=== PATIENT | female | born 2000 | race Caucasian/White ===

== ENCOUNTER 2023-01-08 07:31 | Inpatient (IN) ==
[2023-01-08] MEDS ORDERED: OXYTOCIN 30 UNITS/500 ML BAG IV PRN ×2 (07:53→07:54)
[2023-01-08] MEDS ORDERED: LIDOCAINE 1% LOCAL 20 ML VIAL INFIL PRN (07:53)
--- NOTE | 2023-01-08 08:05 | History & Physical Report ---
Date of Service January 08, 2023 Assessment & Plan (1) Encounter for induction of labor: Plan: Plan for induction of labor for post dates. Noonan bulb placed last night. Plan for induction with Pitocin. Epidural as desired. Admission and Anticipated Discharge Date Admission Date: January 08, 2023 History of Present Illness Primary Care Provider: Lloyd Bermeoyanelis Phillips is a 22 y/o female currently at 40 6/7 WGA with an ROSHAN 01/02/23 as determined by LMP who is here for induction of labor. Noonan bulb placed yesterday evening. + contractions; + movement; no fluid loss; some bleeding after insertion of Noonan bulb External FHT and external uterine monitors used; Category 1 tracing; moderate FHT variability. Had regular appointments with OB. OB Labs: Blood Type A Positive 05/28/22 Antibody Screen NEGATIVE 05/28/22 Hemoglobin 10.2 g/dl (12.0-16.0) L 10/15/22 Hematocrit 30.4 % (34.1-44.9) L 10/15/22 Mean Corpuscular Volume 87.1 fL (80.0-100.0) 05/28/22 Platelet Count 227 K/uL (130-400) 05/28/22 Rubella IgG Antibody Immune (Immune) 05/28/22 Rapid Plasma Reagin Nonreactive (Nonreactive) 05/28/22 Hepatitis B Surface Antigen. NON-REACTIVE (NON-REACTIVE) 05/28/22 Hepatitis C Antibody (EIA) NON-REACTIVE (NON-REACTIVE) 05/28/22 HIV (1&2) Ag and Ab Confirmation NON-REACTIVE (NON-REACTIVE) 05/28/22 Glucose 1 Hour 50 gm Load 118 mg/dl (70-130) 10/15/22 OB Optional Labs: Chlamydia trachomatis RNA NOT DETECTED (NOT DETECTED) 05/28/22 Neisseria gonorrhoeae RNA NOT DETECTED (NOT DETECTED) 05/28/22 GBS Negative Allergies Allergy/AdvReac Type Severity Reaction Status Date / Time No Known Allergies Allergy Verified 01/08/23 07:47 Home Medications Medication Instructions Recorded Confirmed Type prenat.vits,rina,[id number] 1 tab PO DAILY 05/24/22 01/08/23 History ferrous sulfate 27 mg iron tablet 27 mg PO DAILY 01/08/23 01/08/23 History Patient History Surgical History S/P tonsillectomy Family History (Updated 01/08/23 @ 07:47 by Geetha Vázquez RN) Other No history of previous surgery No known health problems Social History (Updated 05/24/22 @ 12:24 by Jailyn López) Smoking Status: Never smoker Second Hand Exposure: No; Hx Alcohol Use: No Hx Substance Use: No Preferred Language: Slovenian Communication Ability: Effective 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 Details: never had a pap Review of Systems Denies fever, chills, sweats Denies shortness of breath, difficulty breathing, chest pain, palpitations, chest pressure. Denies breast pain. Denies dysuria. Denies headache or changes in vision. Physical Exam Physical Exam: General: Alert, oriented. No acute distress. Cardiac: Regular rate and rhythm, no murmurs/rubs/gallops. Respiratory: Clear to auscultation bilaterally a/p, no wheezes/rales/rhonchi. No increased work of breathing. Symmetrical chest rise. No respiratory distress. Abdomen: Gravid Pelvic: Dilation 3-4 cm; Effacement 50; Station -[address] Gonzalez Lower Extremities: No lower extremity edema or swelling. No deep calf pain. Results & Data Vital Signs (Past 12 Hours) Vital Signs Pulse BP 01/08/23 07:45 111 H 136/72 Resident Activity Tracking Resident Involvement: Resident Care Provided Care Provided: OB Delivery
[2023-01-08] MEDS: LACTATED RINGER'S 1,000 ML IV PRN ×4 (08:23→22:43)
[2023-01-08 08:31] LABS: Hemoglobin 12.5 g/dl (12.0-16.0); Mean Corpuscular Hemoglobin 29.3 pg (25.0-34.0); Mean Corpuscular Hgb Conc 33.8 g/dL (32.0-36.0); Mean Corpuscular Volume 86.7 fL (80.0-100.0); Mean Platelet Volume 10.8 fL (9.4-12.4); Platelet Count 229 K/uL (130-400); RDW Coefficient of Variation 16.1 % (11.5-14.5); RDW Standard Deviation 51.2 fL (36.4-46.3); Red Blood Count 4.27 M/uL (4.20-5.40); White Blood Count 16.22 K/ul (4.8-10.8)
[2023-01-08 09:20] LABS: Alanine Aminotransferase 13 U/L (7-52); Albumin Globulin Ratio 1.3 (0.9-2); Albumin Level 3.6 gm/dl (3.4-5.0); Alkaline Phosphatase 125 U/L (34-104); Anion Gap 9 (3-11); Aspartate Aminotransferase 16 U/L (13-39); BUN Creatinine Ratio 11.1 (10-20); Bilirubin,Total 0.4 mg/dl (0.2-1.0); Blood Urea Nitrogen 6 mg/dl (6-23); Calcium 9.3 mg/dl (8.6-10.3); Carbon Dioxide 22 mmol/L (21-32); Chloride 105 mmol/L (98-107); Creatinine Clr Calc Pharmacy 167.9 ml/min; Est GFR (African American) > 150.0 ml/min; Est GFR (Non-African American) 135.8 ml/min; Globulin 2.7 gm/dl (2.5-4.0); Glucose 73 mg/dl (70-99(Fasting)); Sodium 136 mmol/L (136-145); Total Protein 6.3 gm/dl (6.0-8.3)
[2023-01-08] MEDS ORDERED: ePHEDrine sulfate 50 MG/ML AMP ONE (18:56)
[2023-01-08] MEDS ORDERED: SODIUM CHLORIDE 0.9% PF INJ 10 ML VIAL ONE (18:57)
[2023-01-08] MEDS ORDERED: fentaNYL 2MCG/ML ROPIVACAINE 1.25MG/ML 100 ML BAG EPI ONE (18:57)
[2023-01-08] MEDS ORDERED: fentaNYL citrate PF 100 MCG/2 ML VIAL ONE ×2 (18:57→23:18)
[2023-01-08] MEDS ORDERED: LIDOCAINE 2%/EPINEPHRINE 1:200,000 20 ML PF ONE (18:57)
[2023-01-08] MEDS ORDERED: BUPIVACAINE 0.25% PF 30 ML VIAL ONE (18:57)
--- NOTE | 2023-01-08 19:29 | Anesthesiology Consultation ---
Date of Service January 08, 2023 Assessment & Plan Chart Review Chart Review: Acceptable Risk for Labor Epidural Consults Requested none History Height/Weight Height: 5 ft 2 in Weight: 84.822 kg Allergies Allergy/AdvReac Type Severity Reaction Status Date / Time No Known Allergies Allergy Verified 01/08/23 07:47 Medications Home Medications Medication Instructions Recorded Confirmed Last Taken prenat.vits,rina,aue-dvcx-hlizf 1 tab PO DAILY 05/24/22 01/08/23 01/08/23 06:00 ferrous sulfate 27 mg iron tablet 27 mg PO DAILY 01/08/23 01/08/23 01/08/23 06:00 Active Medications Generic Name Dose Route Start Last Admin Trade Name Freq PRN Reason Stop Dose Admin Lactated Ringer's 1,000 mls @ 125 mls/hr 01/08/23 07:53 01/08/23 19:00 Lr IV 01/10/23 07:52 999 mls/hr .Q8H PRN Infusion L&D Protocol Protocol Oxytocin 30 units in 500 mls @ 13 mls/hr 01/08/23 07:54 01/08/23 18:54 Pitocin IV 01/10/23 07:53 0.78 units/hr .Q24H PRN 13 mls/hr Labor Induction/Augmentation Titration Protocol 0.78 UNITS/HR Past Family History Family History (Updated 01/08/23 @ 07:47 by Geetha Vázquez RN) Other No history of previous surgery No known health problems Past Surgical History Surgical History S/P tonsillectomy Social History Smoking Status: Never smoker Hx Alcohol Use: No Hx Substance Use: No substance use type: does not use Physical Exam Vital Signs Last Vital Signs Temp 36.8 C 01/08/23 19:11 Pulse 113 H 01/08/23 18:57 Resp 18 01/08/23 19:11 BP 132/76 01/08/23 18:57 Testing Laboratory Results 01/08/23 08:07 01/08/23 08:42
[2023-01-08] MEDS ORDERED: NALBUPHINE HCL INJ 10 MG/ML AMP IV PRN (19:52)
[2023-01-08] MEDS ORDERED: ONDANSETRON INJ 2 MG/ML 2 ML VIAL IV PRN (19:52)
[2023-01-08] MEDS ORDERED: ePHEDrine sulfate 50 MG/ML AMP IV PRN (19:52)
[2023-01-08] MEDS ORDERED: NALOXONE HCL 0.4 MG/1 ML VIAL/CARP IV PRN (19:52)
[2023-01-08] MEDS ORDERED: NALOXONE HCL 1 MG in SODIUM CHLORIDE 0.9% 1000ML 1,000 ML IV PRN (19:52)
[2023-01-08] MEDS ORDERED: diphenhydrAMINE 50 MG/ML VIAL IV PRN (19:52)
--- NOTE | 2023-01-08 21:23 | Labor Progress Brief Note ---
Date of Service January 08, 2023 IUPC placed in scalp lip is due to difficulty of monitoring of contractions on Pitocin and some episodic decelerations we will continue to titrate Pitocin as artificial rupture membranes occurred and she has an epidural heart rate is to return to category 1 Assessment & Plan Admission and Anticipated Discharge Date Admission Date: January 08, 2023 Results & Data Vital Signs (Past 12 Hours) Vital Signs Temp Pulse Resp BP Pulse Ox 01/08/23 19:11 98.2 F 18 01/08/23 21:19 88 99 01/08/23 21:14 93 H 100 01/08/23 21:09 104 H 100 01/08/23 21:07 86 125/73 01/08/23 21:04 91 H 98 01/08/23 20:30 16 01/08/23 20:30 16 01/08/23 20:45 16 01/08/23 20:45 16 01/08/23 20:00 18 01/08/23 20:00 18 01/08/23 20:15 18 01/08/23 20:15 18 01/08/23 20:59 88 99 01/08/23 20:54 85 100 01/08/23 20:50 83 135/71 01/08/23 20:49 85 100 01/08/23 20:44 95 H 100 01/08/23 20:39 82 100 01/08/23 20:34 119 H 100 01/08/23 20:32 93 H 113/61 01/08/23 20:29 98 H 100 01/08/23 20:26 100 H 110/58 L 01/08/23 20:24 100 H 100 01/08/23 20:21 98 H 113/60 01/08/23 20:19 99 H 100 01/08/23 20:17 101 H 124/64 01/08/23 20:14 94 H 100 01/08/23 20:11 99 H 108/57 L 01/08/23 20:09 121 H 100 01/08/23 20:07 112 H 120/62 01/08/23 20:04 113 H 100 01/08/23 20:01 106 H 100/57 L 01/08/23 19:59 105 H 99 01/08/23 19:55 110 H 109/50 L 01/08/23 19:54 105 H 97 01/08/23 19:53 112 H 104/53 L 01/08/23 19:52 123 H 108/51 L 01/08/23 19:49 97 01/08/23 19:49 99 H 01/08/23 19:49 100 H 126/57 L 01/08/23 19:47 104 H 126/60 01/08/23 19:45 94 H 16 127/58 L 01/08/23 19:44 105 H 97 01/08/23 19:43 94 H 132/64 01/08/23 19:41 100 H 129/72 01/08/23 19:39 96 H 98 01/08/23 19:34 106 H 99 01/08/23 18:57 98.2 F 113 H 132/76 01/08/23 17:59 96 H 139/81 01/08/23 16:57 99.0 F 82 20 134/71 01/08/23 16:01 79 145/73 H 01/08/23 16:00 20 01/08/23 16:00 99.0 F 20 01/08/23 15:26 98.6 F 87 20 142/87 H 01/08/23 14:33 75 126/71 01/08/23 13:29 88 133/71 01/08/23 12:32 83 124/73 01/08/23 11:30 98.8 F 89 20 135/83 01/08/23 10:34 79 132/80 01/08/23 09:25 91 H 124/70 Coding Level of Care Code None Diagnoses
[2023-01-08] MEDS ORDERED: NURSING L&D Epidural Breakthrough Pain Update ONE (23:11)
[2023-01-08] MEDS ORDERED: LIDOCAINE 2% MPF LOCAL 5 ML VIAL ONE (23:18)
--- NOTE | 2023-01-08 23:32 | Communication Note ---
Date of Service: January 08, 2023 Called for c/o pain. Bolused epidural with 2% lidocaine 5cc pus fentanyl 100mcg.
[2023-01-09] MEDS: fentaNYL 2MCG/ML ROPIVACAINE 1.25MG/ML 100 ML BAG EPI PRN ×2 (01:15→06:17)
[2023-01-09] MEDS ORDERED: fentaNYL citrate PF 100 MCG/2 ML VIAL ONE ×2 (01:47→07:04)
[2023-01-09] MEDS ORDERED: BUPIVACAINE 0.5 % 5 MG/1 ML PF 10ML VIAL ONE (01:48)
--- NOTE | 2023-01-09 01:54 | Communication Note ---
Date of Service: January 09, 2023 c/o pain. dosed epidural with .5% bupiv 5cc plus fentanyl 100mcg.
[2023-01-09] MEDS: LACTATED RINGER'S 1,000 ML IV PRN ×2 (02:04→06:48)
--- NOTE | 2023-01-09 06:46 | Labor Progress Brief Note ---
Date of Service January 09, 2023 Slow progress the patient is heart rate is category 1 we had a functioning IUPC however does notice large I attempted to replace the IUPC however the head is firmly wedged in and I was unable to advance enough safely to use another IUPC. I also attempted to straight cath the patient as nursing had difficulty getting urine however again this was difficulty even with some attempts to lift and elevate the baby's head. She is now 7 cm with contraction and 8 cm with contraction this is definite progress albeit slow she seems to be making progress she is uncomfortable we will call anesthesia to see if we can have any additional help with her epidural. I discussed with the patient that I am happy there is progress although it is slow I did discuss the possibility of a however at this stage she is making progress and I think that would be premature. Assessment & Plan Admission and Anticipated Discharge Date Admission Date: January 08, 2023 Results & Data Vital Signs (Past 12 Hours) Vital Signs Temp Pulse Resp BP Pulse Ox 01/08/23 19:11 98.2 F 18 01/09/23 06:42 137 H 132/51 L 01/09/23 06:39 107 H 98 01/09/23 06:34 109 H 98 01/09/23 06:29 102 H 97 01/09/23 06:27 112 H 125/61 01/09/23 06:24 108 H 97 01/09/23 06:19 113 H 98 01/09/23 06:14 111 H 97 01/09/23 06:12 112 H 129/59 L 01/09/23 06:09 127 H 98 01/09/23 06:04 116 H 97 01/09/23 05:59 120 H 97 01/09/23 05:57 117 H 158/70 H 01/09/23 05:54 116 H 97 01/09/23 05:49 115 H 96 01/09/23 05:44 116 H 97 01/09/23 05:42 120 H 153/72 H 01/09/23 05:39 122 H 96 01/09/23 05:34 121 H 96 01/09/23 05:29 117 H 97 01/09/23 05:26 108 H 139/69 01/09/23 05:24 112 H 139/58 L 96 01/09/23 05:22 112 H 140/65 01/09/23 05:20 113 H 133/55 L 01/09/23 05:19 114 H 96 01/09/23 05:18 110 H 140/64 01/09/23 05:16 109 H 139/57 L 01/09/23 05:14 97 01/09/23 05:14 118 H 01/09/23 05:14 112 H 148/66 H 01/09/23 05:12 111 H 153/70 H 01/09/23 05:10 111 H 150/69 H 01/09/23 05:09 111 H 96 01/09/23 05:08 112 H 139/63 01/09/23 05:06 122 H 129/62 01/09/23 05:04 114 H 136/62 98 01/09/23 05:02 105 H 137/63 01/09/23 05:00 99.1 F 111 H 16 136/65 01/09/23 04:59 111 H 97 01/09/23 04:58 107 H 135/64 01/09/23 04:56 107 H 135/63 01/09/23 04:54 108 H 137/64 96 01/09/23 04:52 129 H 130/61 01/09/23 04:50 123 H 111/53 L 01/09/23 04:49 125 H 96 01/09/23 04:48 110 H 135/62 01/09/23 04:46 112 H 137/63 01/09/23 04:44 118 H 130/60 96 01/09/23 04:42 108 H 129/60 01/09/23 04:39 108 H 95 01/09/23 04:40 107 H 128/59 L 01/09/23 04:38 111 H 131/63 01/09/23 04:36 110 H 132/60 01/09/23 04:34 105 H 133/62 95 01/09/23 04:32 114 H 134/62 01/09/23 04:30 118 H 132/61 01/09/23 04:29 106 H 96 01/09/23 04:28 116 H 139/65 01/09/23 04:26 113 H 133/61 01/09/23 04:24 117 H 142/67 H 96 01/09/23 04:22 109 H 137/73 01/09/23 04:19 115 H 95 01/09/23 04:14 109 H 96 01/09/23 04:09 115 H 96 01/09/23 04:07 115 H 136/70 01/09/23 04:04 111 H 97 01/09/23 03:59 112 H 96 01/09/23 03:54 106 H 96 01/09/23 03:53 107 H 130/66 01/09/23 03:49 112 H 97 01/09/23 03:44 107 H 96 01/09/23 03:39 125 H 97 01/09/23 03:38 113 H 140/80 01/09/23 03:34 122 H 96 01/09/23 03:29 115 H 96 01/09/23 03:24 107 H 96 01/09/23 03:23 108 H 131/59 L 01/09/23 03:19 105 H 96 01/09/23 03:14 108 H 96 01/09/23 03:09 125 H 97 01/09/23 03:07 109 H 132/62 01/09/23 03:04 109 H 96 01/09/23 02:59 97 01/09/23 02:59 111 H 01/09/23 03:00 99.5 F 104 H 20 149/70 H 96 01/09/23 02:54 106 H 96 01/09/23 02:52 115 H 169/74 H 01/09/23 02:49 114 H 95 01/09/23 02:44 116 H 96 01/09/23 02:39 115 H 173/82 H 97 01/09/23 02:34 111 H 98 01/09/23 02:29 131 H 98 01/09/23 02:24 105 H 96 01/09/23 02:22 117 H 145/75 H 01/09/23 02:19 112 H 95 01/09/23 02:14 104 H 93 01/09/23 02:11 104 H 93 01/09/23 02:09 104 H 95 01/09/23 02:06 112 H 135/74 92 01/09/23 02:04 111 H 146/75 H 97 01/09/23 02:02 109 H 145/69 H 01/09/23 01:59 97 01/09/23 01:59 109 H 01/09/23 02:00 103 H 145/68 H 01/09/23 01:59 114 H 93 01/09/23 01:58 115 H 142/72 H 01/09/23 01:56 110 H 146/79 H 01/09/23 01:54 119 H 148/84 H 98 01/09/23 01:51 115 H 155/90 H 01/09/23 01:49 119 H 99 01/09/23 01:00 98.8 F 01/09/23 01:44 116 H 99 01/09/23 01:39 132 H 99 01/09/23 01:36 144 H 182/105 H 01/09/23 01:34 149 H 98 01/09/23 01:29 127 H 98 01/09/23 01:24 120 H 98 01/09/23 01:19 123 H 96 01/09/23 01:20 121 H 132/67 01/09/23 01:14 121 H 96 01/09/23 01:09 122 H 96 01/09/23 01:07 114 H 136/69 01/09/23 01:04 113 H 95 01/09/23 00:59 118 H 96 01/09/23 00:54 121 H 97 01/09/23 00:49 116 H 96 01/09/23 00:50 111 H 108/57 L 01/09/23 00:44 115 H 96 01/09/23 00:39 108 H 96 01/09/23 00:36 105 H 114/63 01/09/23 00:34 106 H 98 01/09/23 00:29 100 H 97 01/09/23 00:24 99 H 98 01/09/23 00:19 115 H 98 01/09/23 00:20 107 H 145/85 H 01/09/23 00:14 106 H 98 01/09/23 00:09 99 H 98 01/09/23 00:05 101 H 140/74 01/09/23 00:04 116 H 97 01/08/23 23:59 124 H 97 01/08/23 23:54 115 H 96 01/08/23 23:50 114 H 136/72 01/08/23 23:49 117 H 97 01/08/23 23:44 120 H 97 01/08/23 23:39 114 H 97 01/08/23 23:35 117 H 132/69 01/08/23 23:34 117 H 97 03 23:29 112 H 98 03/23 23:24 99 H 98 0323 23:20 115 H 144/76 H 0323 23:19 107 H 98 0323 23:14 105 H 98 03 23:09 100 H 98 03 23:06 99 H 139/72 03 23:04 97 H 97 0323 22:59 98 H 97 03 22:54 98 H 97 0323 22:51 99 H 147/72 H 0323 22:49 98 H 97 0323 22:44 130 H 99 03 22:39 123 H 98 03 22:34 100 H 97 03 22:35 98.2 F 100 H 112/56 L 01/08/23 22:29 116 H 98 01/08/23 22:24 104 H 97 01/08/23 22:20 104 H 109/58 L 01/08/23 22:19 103 H 98 0323 22:14 108 H 97 0323 22:09 111 H 96 032223 22:07 108 H 117/63 03 22:04 106 H 96 01/08/23 21:59 106 H 96 23 21:54 105 H 97 01/08/23 21:51 99 H 109/58 L 23 21:49 98 H 97 01/08/23 21:44 99 H 97 23 21:39 99 H 97 0323 21:35 104 H 107/57 L 23 21:34 103 H 99 032223 21:29 98 H 98 0322/23 21:24 94 H 98 0322/23 21:20 85 116/62 0322/23 21:19 88 99 0322/23 21:14 93 H 100 0322/23 21:09 104 H 100 0322/23 21:07 86 125/73 0322/23 21:04 99.3 F 91 H 98 22/23 20:30 16 0322/23 20:30 16 0322/23 20:45 16 03/22/23 20:45 16 01/08/23 20:00 18 01/08/23 20:00 18 01/08/23 20:15 18 01/08/23 20:15 18 01/08/23 20:59 88 99 01/08/23 20:54 85 100 01/08/23 20:50 83 135/71 01/08/23 20:49 85 100 01/08/23 20:44 95 H 100 01/08/23 20:39 82 100 01/08/23 20:34 119 H 100 01/08/23 20:32 93 H 113/61 01/08/23 20:29 98 H 100 01/08/23 20:26 100 H 110/58 L 01/08/23 20:24 100 H 100 01/08/23 20:21 98 H 113/60 01/08/23 20:19 99 H 100 01/08/23 20:17 101 H 124/64 01/08/23 20:14 94 H 100 01/08/23 20:11 99 H 108/57 L 01/08/23 20:09 121 H 100 01/08/23 20:07 112 H 120/62 01/08/23 20:04 113 H 100 01/08/23 20:01 106 H 100/57 L 01/08/23 19:59 105 H 99 01/08/23 19:55 110 H 109/50 L 01/08/23 19:54 105 H 97 01/08/23 19:53 112 H 104/53 L 01/08/23 19:52 123 H 108/51 L 01/08/23 19:49 97 01/08/23 19:49 99 H 01/08/23 19:49 100 H 126/57 L 01/08/23 19:47 104 H 126/60 01/08/23 19:45 94 H 16 127/58 L 01/08/23 19:44 105 H 97 01/08/23 19:43 94 H 132/64 01/08/23 19:41 100 H 129/72 01/08/23 19:39 96 H 98 01/08/23 19:34 106 H 99 01/08/23 18:57 98.2 F 113 H 132/76 Coding Level of Care Code None Diagnoses
[2023-01-09] MEDS ORDERED: ePHEDrine sulfate 50 MG/ML AMP ONE (07:03)
[2023-01-09] MEDS ORDERED: SODIUM CHLORIDE 0.9% PF INJ 10 ML VIAL ONE (07:04)
[2023-01-09] MEDS ORDERED: fentaNYL 2MCG/ML ROPIVACAINE 1.25MG/ML 100 ML BAG EPI ONE (07:04)
[2023-01-09] MEDS ORDERED: LIDOCAINE 2%/EPINEPHRINE 1:200,000 20 ML PF ONE ×2 (07:04→09:45)
[2023-01-09] MEDS ORDERED: BUPIVACAINE 0.25% PF 30 ML VIAL ONE (07:04)
--- NOTE | 2023-01-09 07:17 | Obstetrical Progress Note ---
Date of Service January 09, 2023 Assessment & Plan (1) Encounter for induction of labor: Plan continue current management. fetus reassuring. Admission and Anticipated Discharge Date Admission Date: January 08, 2023 Subjective Getting epidural redosed Physical Exam Physical Exam: cx--//100/0 toco--q2min efm--130s with mod variabiltiy, accels to 150s, no decels Results & Data Vital Signs (Past 12 Hours) Vital Signs Temp Pulse Resp BP Pulse Ox 01/09/23 07:12 110 H 131/74 01/09/23 07:09 125 H 97 01/09/23 07:04 112 H 97 01/09/23 06:59 116 H 96 01/09/23 06:57 121 H 130/74 01/09/23 06:54 113 H 96 01/09/23 06:49 114 H 97 01/09/23 06:44 104 H 97 01/09/23 06:42 137 H 132/51 L 01/09/23 06:39 107 H 98 01/09/23 06:34 109 H 98 01/09/23 06:29 102 H 97 01/09/23 06:27 112 H 125/61 01/09/23 06:24 108 H 97 01/09/23 06:19 113 H 98 01/09/23 06:14 111 H 97 01/09/23 06:12 112 H 129/59 L 01/09/23 06:09 127 H 98 01/09/23 06:04 116 H 97 01/09/23 05:59 120 H 97 01/09/23 05:57 117 H 158/70 H 01/09/23 05:54 116 H 97 01/09/23 05:49 115 H 96 01/09/23 05:44 116 H 97 01/09/23 05:42 120 H 153/72 H 01/09/23 05:39 122 H 96 01/09/23 05:34 121 H 96 01/09/23 05:29 117 H 97 01/09/23 05:26 108 H 139/69 01/09/23 05:24 112 H 139/58 L 96 01/09/23 05:22 112 H 140/65 01/09/23 05:20 113 H 133/55 L 01/09/23 05:19 114 H 96 01/09/23 05:18 110 H 140/64 01/09/23 05:16 109 H 139/57 L 01/09/23 05:14 97 01/09/23 05:14 118 H 01/09/23 05:14 112 H 148/66 H 01/09/23 05:12 111 H 153/70 H 01/09/23 05:10 111 H 150/69 H 01/09/23 05:09 111 H 96 01/09/23 05:08 112 H 139/63 01/09/23 05:06 122 H 129/62 01/09/23 05:04 114 H 136/62 98 01/09/23 05:02 105 H 137/63 01/09/23 05:00 37.3 C 111 H 16 136/65 01/09/23 04:59 111 H 97 01/09/23 04:58 107 H 135/64 01/09/23 04:56 107 H 135/63 01/09/23 04:54 108 H 137/64 96 01/09/23 04:52 129 H 130/61 01/09/23 04:50 123 H 111/53 L 01/09/23 04:49 125 H 96 01/09/23 04:48 110 H 135/62 01/09/23 04:46 112 H 137/63 01/09/23 04:44 118 H 130/60 96 01/09/23 04:42 108 H 129/60 01/09/23 04:39 108 H 95 01/09/23 04:40 107 H 128/59 L 01/09/23 04:38 111 H 131/63 01/09/23 04:36 110 H 132/60 01/09/23 04:34 105 H 133/62 95 01/09/23 04:32 114 H 134/62 01/09/23 04:30 118 H 132/61 01/09/23 04:29 106 H 96 01/09/23 04:28 116 H 139/65 01/09/23 04:26 113 H 133/61 01/09/23 04:24 117 H 142/67 H 96 01/09/23 04:22 109 H 137/73 01/09/23 04:19 115 H 95 01/09/23 04:14 109 H 96 01/09/23 04:09 115 H 96 01/09/23 04:07 115 H 136/70 01/09/23 04:04 111 H 97 01/09/23 03:59 112 H 96 01/09/23 03:54 106 H 96 01/09/23 03:53 107 H 130/66 01/09/23 03:49 112 H 97 01/09/23 03:44 107 H 96 01/09/23 03:39 125 H 97 01/09/23 03:38 113 H 140/80 01/09/23 03:34 122 H 96 01/09/23 03:29 115 H 96 01/09/23 03:24 107 H 96 01/09/23 03:23 108 H 131/59 L 01/09/23 03:19 105 H 96 01/09/23 03:14 108 H 96 01/09/23 03:09 125 H 97 01/09/23 03:07 109 H 132/62 01/09/23 03:04 109 H 96 01/09/23 02:59 97 01/09/23 02:59 111 H 01/09/23 03:00 37.5 C 104 H 20 149/70 H 96 01/09/23 02:54 106 H 96 01/09/23 02:52 115 H 169/74 H 01/09/23 02:49 114 H 95 01/09/23 02:44 116 H 96 01/09/23 02:39 115 H 173/82 H 97 01/09/23 02:34 111 H 98 01/09/23 02:29 131 H 98 01/09/23 02:24 105 H 96 01/09/23 02:22 117 H 145/75 H 01/09/23 02:19 112 H 95 01/09/23 02:14 104 H 93 01/09/23 02:11 104 H 93 01/09/23 02:09 104 H 95 01/09/23 02:06 112 H 135/74 92 01/09/23 02:04 111 H 146/75 H 97 01/09/23 02:02 109 H 145/69 H 01/09/23 01:59 97 01/09/23 01:59 109 H 01/09/23 02:00 103 H 145/68 H 01/09/23 01:59 114 H 93 01/09/23 01:58 115 H 142/72 H 01/09/23 01:56 110 H 146/79 H 01/09/23 01:54 119 H 148/84 H 98 01/09/23 01:51 115 H 155/90 H 01/09/23 01:49 119 H 99 01/09/23 01:00 37.1 C 01/09/23 01:44 116 H 99 01/09/23 01:39 132 H 99 01/09/23 01:36 144 H 182/105 H 01/09/23 01:34 149 H 98 01/09/23 01:29 127 H 98 01/09/23 01:24 120 H 98 01/09/23 01:19 123 H 96 01/09/23 01:20 121 H 132/67 01/09/23 01:14 121 H 96 01/09/23 01:09 122 H 96 01/09/23 01:07 114 H 136/69 01/09/23 01:04 113 H 95 01/09/23 00:59 118 H 96 01/09/23 00:54 121 H 97 01/09/23 00:49 116 H 96 01/09/23 00:50 111 H 108/57 L 01/09/23 00:44 115 H 96 01/09/23 00:39 108 H 96 01/09/23 00:36 105 H 114/63 01/09/23 00:34 106 H 98 01/09/23 00:29 100 H 97 01/09/23 00:24 99 H 98 01/09/23 00:19 115 H 98 01/09/23 00:20 107 H 145/85 H 01/09/23 00:14 106 H 98 01/09/23 00:09 99 H 98 01/09/23 00:05 101 H 140/74 01/09/23 00:04 116 H 97 01/08/23 23:59 124 H 97 01/08/23 23:54 115 H 96 01/08/23 23:50 114 H 136/72 01/08/23 23:49 117 H 97 01/08/23 23:44 120 H 97 01/08/23 23:39 114 H 97 01/08/23 23:35 117 H 132/69 01/08/23 23:34 117 H 97 01/08/23 23:29 112 H 98 01/08/23 23:24 99 H 98 03/22/23 23:20 115 H 144/76 H 01/08/23 23:19 107 H 98 01/08/23 23:14 105 H 98 01/08/23 23:09 100 H 98 01/08/23 23:06 99 H 139/72 01/08/23 23:04 97 H 97 01/08/23 22:59 98 H 97 01/08/23 22:54 98 H 97 01/08/23 22:51 99 H 147/72 H 01/08/23 22:49 98 H 97 01/08/23 22:44 130 H 99 01/08/23 22:39 123 H 98 01/08/23 22:34 100 H 97 01/08/23 22:35 36.8 C 100 H 112/56 L 01/08/23 22:29 116 H 98 01/08/23 22:24 104 H 97 01/08/23 22:20 104 H 109/58 L 01/08/23 22:19 103 H 98 01/08/23 22:14 108 H 97 01/08/23 22:09 111 H 96 01/08/23 22:07 108 H 117/63 01/08/23 22:04 106 H 96 01/08/23 21:59 106 H 96 01/08/23 21:54 105 H 97 01/08/23 21:51 99 H 109/58 L 01/08/23 21:49 98 H 97 01/08/23 21:44 99 H 97 01/08/23 21:39 99 H 97 01/08/23 21:35 104 H 107/57 L 01/08/23 21:34 103 H 99 01/08/23 21:29 98 H 98 01/08/23 21:24 94 H 98 01/08/23 21:20 85 116/62 01/08/23 21:19 88 99 01/08/23 21:14 93 H 100 01/08/23 21:09 104 H 100 01/08/23 21:07 86 125/73 01/08/23 21:04 37.4 C 91 H 98 01/08/23 20:30 16 01/08/23 20:30 16 01/08/23 20:45 16 01/08/23 20:45 16 01/08/23 20:00 18 01/08/23 20:00 18 01/08/23 20:15 18 01/08/23 20:15 18 01/08/23 20:59 88 99 01/08/23 20:54 85 100 01/08/23 20:50 83 135/71 01/08/23 20:49 85 100 01/08/23 20:44 95 H 100 01/08/23 20:39 82 100 01/08/23 20:34 119 H 100 01/08/23 20:32 93 H 113/61 01/08/23 20:29 98 H 100 01/08/23 20:26 100 H 110/58 L 01/08/23 20:24 100 H 100 01/08/23 20:21 98 H 113/60 01/08/23 20:19 99 H 100 01/08/23 20:17 101 H 124/64 01/08/23 20:14 94 H 100 01/08/23 20:11 99 H 108/57 L 01/08/23 20:09 121 H 100 01/08/23 20:07 112 H 120/62 01/08/23 20:04 113 H 100 01/08/23 20:01 106 H 100/57 L 01/08/23 19:59 105 H 99 01/08/23 19:55 110 H 109/50 L 01/08/23 19:54 105 H 97 01/08/23 19:53 112 H 104/53 L 01/08/23 19:52 123 H 108/51 L 01/08/23 19:49 97 01/08/23 19:49 99 H 01/08/23 19:49 100 H 126/57 L 01/08/23 19:47 104 H 126/60 01/08/23 19:45 94 H 16 127/58 L 01/08/23 19:44 105 H 97 01/08/23 19:43 94 H 132/64 01/08/23 19:41 100 H 129/72 01/08/23 19:39 96 H 98 01/08/23 19:34 106 H 99 PG Care Time/CCT Total # of Minutes Spent Total Time Spent with Patient: Total time spent is greater than 50% in coordination of care (as documented) at patient's floor/unit and/or counseling patient: Coding Level of Care Code None Diagnoses Encounter for induction of labor Z34.90
[2023-01-09] MEDS ORDERED: NALBUPHINE HCL INJ 10 MG/ML AMP IV PRN ×2 (07:39→12:22)
[2023-01-09] MEDS ORDERED: NALOXONE HCL 1 MG in SODIUM CHLORIDE 0.9% 1000ML 1,000 ML IV PRN ×2 (07:39→12:22)
[2023-01-09] MEDS ORDERED: NALOXONE HCL 0.4 MG/1 ML VIAL/CARP IV PRN ×2 (07:39→12:22)
[2023-01-09] MEDS ORDERED: fentaNYL 2MCG/ML ROPIVACAINE 1.25MG/ML 100 ML BAG EPI PRN (07:39)
[2023-01-09] MEDS ORDERED: diphenhydrAMINE 50 MG/ML VIAL IV PRN ×3 (07:39→12:22)
[2023-01-09] MEDS ORDERED: ePHEDrine sulfate 50 MG/ML AMP IV PRN ×2 (07:39→12:22)
--- NOTE | 2023-01-09 07:39 | Communication Note ---
Date of Service: January 09, 2023 Patient still having pain, primarily on left and in back. 3 redoses of epidural overnight. Recommeended to replace epidural over another redose. Epidural replaced one interspace level higher. DAPHNE at 5.5cm, catheter at 9cm. Dosed with 12cc of 0.125% bupivicane after lidocaine 1.5% + epi 3cc test dose. Patient's pain is improving. VSS.
--- NOTE | 2023-01-09 08:58 | Labor Progress Brief Note ---
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 Now will be able to tell what is going on with the FHT, likely category 2. Has not made any descent and signficant caput noted. Discussed will recheck in one hour as long as the baby looks ok. If no change, consider c/s Admission and Anticipated Discharge Date Admission Date: January 08, 2023 Physical Exam Physical Exam: cx--8-9/0 toco--difficult tracing, able to place iupc efm--140s wtih mod variability, +scalp stim. some decels and difficult to tell what they are as cannot trace contractions. Results & Data Vital Signs (Past 12 Hours) Vital Signs Temp Pulse Resp BP Pulse Ox 01/09/23 08:51 107 H 121/61 01/09/23 08:49 97 H 97 01/09/23 08:44 125 H 99 01/09/23 08:39 125 H 96 01/09/23 08:37 126 H 107/57 L 01/09/23 08:34 131 H 96 01/09/23 08:29 120 H 96 01/09/23 07:10 20 01/09/23 07:10 20 01/09/23 07:25 20 01/09/23 07:25 36.8 C 20 01/09/23 07:40 20 01/09/23 07:40 20 01/09/23 07:55 20 01/09/23 07:55 20 01/09/23 08:24 132 H 97 01/09/23 08:22 133 H 108/56 L 01/09/23 08:19 131 H 97 01/09/23 08:14 132 H 98 01/09/23 08:09 130 H 98 01/09/23 08:08 127 H 117/57 L 01/09/23 08:04 121 H 97 01/09/23 07:59 123 H 97 01/09/23 07:54 120 H 97 01/09/23 07:51 121 H 114/69 01/09/23 07:49 98 01/09/23 07:49 129 H 01/09/23 07:49 130 H 114/70 01/09/23 07:47 137 H 112/63 03/23/23 07:45 120 H 116/71 01/09/23 07:44 118 H 98 01/09/23 07:43 127 H 111/55 L 01/09/23 07:41 111 H 129/62 01/09/23 07:39 114 H 126/65 97 01/09/23 07:37 109 H 127/70 01/09/23 07:35 118 H 127/76 01/09/23 07:34 113 H 97 01/09/23 07:33 111 H 127/75 01/09/23 07:31 113 H 129/72 01/09/23 07:29 108 H 97 01/09/23 07:27 118 H 142/65 H 01/09/23 07:26 137 H 140/80 01/09/23 07:24 103 H 97 01/09/23 07:19 113 H 96 01/09/23 07:14 123 H 98 01/09/23 07:12 110 H 131/74 01/09/23 07:09 125 H 97 01/09/23 07:04 112 H 97 01/09/23 06:59 116 H 96 01/09/23 06:57 121 H 130/74 01/09/23 06:54 113 H 96 01/09/23 06:49 114 H 97 01/09/23 06:44 104 H 97 01/09/23 06:42 137 H 132/51 L 01/09/23 06:39 107 H 98 01/09/23 06:34 109 H 98 01/09/23 06:29 102 H 97 01/09/23 06:27 112 H 125/61 01/09/23 06:24 108 H 97 01/09/23 06:19 113 H 98 01/09/23 06:14 111 H 97 01/09/23 06:12 112 H 129/59 L 01/09/23 06:09 127 H 98 01/09/23 06:04 116 H 97 01/09/23 05:59 120 H 97 01/09/23 05:57 117 H 158/70 H 01/09/23 05:54 116 H 97 01/09/23 05:49 115 H 96 01/09/23 05:44 116 H 97 01/09/23 05:42 120 H 153/72 H 01/09/23 05:39 122 H 96 01/09/23 05:34 121 H 96 01/09/23 05:29 117 H 97 01/09/23 05:26 108 H 139/69 01/09/23 05:24 112 H 139/58 L 96 01/09/23 05:22 112 H 140/65 01/09/23 05:20 113 H 133/55 L 01/09/23 05:19 114 H 96 01/09/23 05:18 110 H 140/64 01/09/23 05:16 109 H 139/57 L 01/09/23 05:14 97 01/09/23 05:14 118 H 01/09/23 05:14 112 H 148/66 H 01/09/23 05:12 111 H 153/70 H 01/09/23 05:10 111 H 150/69 H 01/09/23 05:09 111 H 96 01/09/23 05:08 112 H 139/63 01/09/23 05:06 122 H 129/62 01/09/23 05:04 114 H 136/62 98 01/09/23 05:02 105 H 137/63 01/09/23 05:00 37.3 C 111 H 16 136/65 01/09/23 04:59 111 H 97 01/09/23 04:58 107 H 135/64 01/09/23 04:56 107 H 135/63 01/09/23 04:54 108 H 137/64 96 01/09/23 04:52 129 H 130/61 01/09/23 04:50 123 H 111/53 L 01/09/23 04:49 125 H 96 01/09/23 04:48 110 H 135/62 01/09/23 04:46 112 H 137/63 01/09/23 04:44 118 H 130/60 96 01/09/23 04:42 108 H 129/60 01/09/23 04:39 108 H 95 01/09/23 04:40 107 H 128/59 L 01/09/23 04:38 111 H 131/63 01/09/23 04:36 110 H 132/60 01/09/23 04:34 105 H 133/62 95 01/09/23 04:32 114 H 134/62 01/09/23 04:30 118 H 132/61 01/09/23 04:29 106 H 96 01/09/23 04:28 116 H 139/65 01/09/23 04:26 113 H 133/61 01/09/23 04:24 117 H 142/67 H 96 01/09/23 04:22 109 H 137/73 01/09/23 04:19 115 H 95 01/09/23 04:14 109 H 96 01/09/23 04:09 115 H 96 01/09/23 04:07 115 H 136/70 01/09/23 04:04 111 H 97 01/09/23 03:59 112 H 96 01/09/23 03:54 106 H 96 01/09/23 03:53 107 H 130/66 01/09/23 03:49 112 H 97 01/09/23 03:44 107 H 96 01/09/23 03:39 125 H 97 01/09/23 03:38 113 H 140/80 01/09/23 03:34 122 H 96 01/09/23 03:29 115 H 96 01/09/23 03:24 107 H 96 01/09/23 03:23 108 H 131/59 L 01/09/23 03:19 105 H 96 01/09/23 03:14 108 H 96 01/09/23 03:09 125 H 97 01/09/23 03:07 109 H 132/62 01/09/23 03:04 109 H 96 01/09/23 02:59 97 01/09/23 02:59 111 H 01/09/23 03:00 37.5 C 104 H 20 149/70 H 96 01/09/23 02:54 106 H 96 01/09/23 02:52 115 H 169/74 H 01/09/23 02:49 114 H 95 01/09/23 02:44 116 H 96 01/09/23 02:39 115 H 173/82 H 97 01/09/23 02:34 111 H 98 01/09/23 02:29 131 H 98 01/09/23 02:24 105 H 96 01/09/23 02:22 117 H 145/75 H 01/09/23 02:19 112 H 95 01/09/23 02:14 104 H 93 01/09/23 02:11 104 H 93 01/09/23 02:09 104 H 95 01/09/23 02:06 112 H 135/74 92 01/09/23 02:04 111 H 146/75 H 97 01/09/23 02:02 109 H 145/69 H 01/09/23 01:59 97 01/09/23 01:59 109 H 01/09/23 02:00 103 H 145/68 H 01/09/23 01:59 114 H 93 01/09/23 01:58 115 H 142/72 H 01/09/23 01:56 110 H 146/79 H 01/09/23 01:54 119 H 148/84 H 98 01/09/23 01:51 115 H 155/90 H 01/09/23 01:49 119 H 99 01/09/23 01:00 37.1 C 01/09/23 01:44 116 H 99 01/09/23 01:39 132 H 99 01/09/23 01:36 144 H 182/105 H 01/09/23 01:34 149 H 98 01/09/23 01:29 127 H 98 01/09/23 01:24 120 H 98 01/09/23 01:19 123 H 96 01/09/23 01:20 121 H 132/67 01/09/23 01:14 121 H 96 01/09/23 01:09 122 H 96 01/09/23 01:07 114 H 136/69 01/09/23 01:04 113 H 95 01/09/23 00:59 118 H 96 01/09/23 00:54 121 H 97 01/09/23 00:49 116 H 96 01/09/23 00:50 111 H 108/57 L 01/09/23 00:44 115 H 96 01/09/23 00:39 108 H 96 01/09/23 00:36 105 H 114/63 01/09/23 00:34 106 H 98 01/09/23 00:29 100 H 97 01/09/23 00:24 99 H 98 01/09/23 00:19 115 H 98 01/09/23 00:20 107 H 145/85 H 01/09/23 00:14 106 H 98 01/09/23 00:09 99 H 98 01/09/23 00:05 101 H 140/74 01/09/23 00:04 116 H 97 01/08/23 23:59 124 H 97 0322/23 23:54 115 H 96 03/23 23:50 114 H 136/72 0322/23 23:49 117 H 97 03/23 23:44 120 H 97 032223 23:39 114 H 97 0322/23 23:35 117 H 132/69 0322/23 23:34 117 H 97 0322/23 23:29 112 H 98 03/23 23:24 99 H 98 0322/23 23:20 115 H 144/76 H 03/23 23:19 107 H 98 03/23 23:14 105 H 98 0323 23:09 100 H 98 03/23 23:06 99 H 139/72 23 23:04 97 H 97 03/23 22:59 98 H 97 23 22:54 98 H 97 23 22:51 99 H 147/72 H 23 22:49 98 H 97 23 22:44 130 H 99 0323 22:39 123 H 98 032223 22:34 100 H 97 03/23 22:35 36.8 C 100 H 112/56 L 2223 22:29 116 H 98 032223 22:24 104 H 97 0322/23 22:20 104 H 109/58 L 2223 22:19 103 H 98 0322/23 22:14 108 H 97 0322/23 22:09 111 H 96 032223 22:07 108 H 117/63 03/23 22:04 106 H 96 0322/23 21:59 106 H 96 0322/23 21:54 105 H 97 0322/23 21:51 99 H 109/58 L 22/23 21:49 98 H 97 0322/23 21:44 99 H 97 0322/23 21:39 99 H 97 0322/23 21:35 104 H 107/57 L 22/23 21:34 103 H 99 0322/23 21:29 98 H 98 0322/23 21:24 94 H 98 0322/23 21:20 85 116/62 0322/23 21:19 88 99 03/22/23 21:14 93 H 100 01/08/23 21:09 104 H 100 01/08/23 21:07 86 125/73 01/08/23 21:04 37.4 C 91 H 98 01/08/23 20:59 88 99 Coding Level of Care Code None Diagnoses Encounter for induction of labor Z34.90
--- NOTE | 2023-01-09 09:09 | Communication Note ---
Date of Service: January 09, 2023 Patient appears to be having late decels now that we can see contractions. variability still good and had scalp stim with exam. Fetus only tolerates very minimal positioning. Plan to proceed with c/s at this point. Patient expresses understanding. risks of surgery discussed and consent signed. Noonan placed, essentially no urine. When head lifted to help with catheter, large amount of green mec noted.
[2023-01-09] MEDS ORDERED: CITRIC ACID/SODIUM CITRATE 15 ML UDC ONE (09:23)
--- NOTE | 2023-01-09 09:29 | Communication Note ---
Date of Service: January 09, 2023 c section called for late decelerations and CPD. Her new epidural is working well. Will dose this for the c section.
[2023-01-09] MEDS ORDERED: CITRIC ACID/SODIUM CITRATE 15 ML UDC PO SCH (09:30)
[2023-01-09] MEDS ORDERED: ceFAZolin 330 MG/ML 1 GM VIAL ONE (09:45)
[2023-01-09] MEDS ORDERED: OXYTOCIN 10 UNITS/ML 10ML VIAL ONE (09:50)
[2023-01-09] MEDS ORDERED: PHENYLEPHRINE HCL 10 MG/ML VIAL ONE (10:03)
[2023-01-09] MEDS ORDERED: KETOROLAC 30 MG/ML VIAL ONE (10:05)
[2023-01-09] MEDS ORDERED: MoRPHine SULFATE PF 1 MG/ML 10 ML AMP/VIAL ONE (10:05)
[2023-01-09] MEDS ORDERED: METHYLERGONOVINE MALEATE 0.2 MG/ML AMP ONE (10:05)
[2023-01-09] MEDS ORDERED: CARBOPROST TROMETHAMINE 250 MCG/ML AMPUL ONE (10:05)
--- NOTE | 2023-01-09 10:28 | Operative Report ---
PG Post Operative Report Pre & Post Diagnosis Operation Date: 01/09/23 09:30 <Pre-op-- at 41 weeks induction for post dates failure to progress nonreassuring heart rate thick meconium post-op--same No data on this case meets the specified criteria> I identified the patient and participated in the time-out.: Yes Procedure Operation Date: 01/09/23 09:30 primary low transverse <No data on this case meets the specified criteria> Surgeon Laila Lay MD, FACOG Program Mgr Dr. Hidalgo Estimated Blood Loss 600 Findings Consistent with Post-Op Diagnosis viable female infant, cephalic , transverse, apgars 1/9. normal uterus , tubes and ovaries bilaterally Fluids 1000cc 100cc concentrated urine Specimens cord blood gases Drains boston Anesthesia Type Labor Epidural Complications none Disposition Accompanied Patient To Recovery: No Disposition: L&D Indications Patient is a 22yowf G1 who presented for induction of labor for postdates. Progressed slowly to 8-9/100/0. Fetus started having late decels with contractions, had difficulty tracing contractions and was not further progressing or descending. Description of Procedure The patient was taken to the operating room where she was identified verbally and by bracelet. She was seated on the operating table where a spinal anesthetic was placed by anesthesia. She was then placed in the supine position with a leftward tilt. A Boston catheter was placed sterilely. the patient was prepped and draped in a normal standard fashion. the anesthetic was tested and found to be adequate. A time-out was held, identifying correct patient, procedure, positioning and preoperative antibiotics. There were no concerns. A Pfannenstiel skin incision was made with a knife and taken down to the underlying layer of fascia with the knife and Bovie electrocautery. Bleeding was attended to with the Bovie. The fascia was incised in the midline with the knife and taken out laterally with scissors. The superior edge of the fascial incision was grasped, elevated and the underlying layer of rectus muscle was taken off bluntly and with scissors. In a similar fashion, the inferior edge of the fascial incision was grasped, elevated and the underlying layer of rectus muscle was taken off bluntly and with scissors. The muscles were bluntly in the midline. The peritoneum was entered bluntly. The incision was then stretched. The bladder blade was placed. The vesicouterine peritoneum was identified, entered with scissors and taken out laterally with scissors. The bladder flap was created digitally A hysterotomy incision was scored with a knife and the incision was stretched superiorly and inferiorly with the stenotype operator's fingers. The operators hand was placed into the incision and the head was delivered atraumatically. No nuchal cord. The nose and mouth were bulb suctioned. the rest of the infant was then delivered without difficulty. The nose and mouth were again bulb suctioned. The cord was clamped and cut and the was then handed off to the awaiting soil sampler for drying and attention. Cord blood and segment were obtained. The placenta was Manually extracted. The uterus was exteriorized and cleared of all clot and debris with moistened laparotomy sponges. The hysterotomy incision was repaired in two layers, the first in a running locked layer, the second in an imbricating layer. Hemostasis was noted to be good. Posterior cul-de-sac was irrigated and cleared of all clot and debris. The hysterotomy incision was again inspected and found to be hemostatic. the uterus was reinteriorized. Hysterotomy incision was again inspected and found to be hemostatic. Rectus muscles were reapproximated with several interrupted stitches of 0 Vicryl. The fascia was then reapproximated with 0 Vicryl starting at the edges and meeting in the midline. The subcuticular tissues were copiously irrigated and bleeding was attended to with cautery. The skin was then closed with 4-0 Vicryl in a subcuticular fashion. All sponge, lap and needle counts correct x 2. Patient taken to recovery in stable condition. I attest to the content of the Intraoperative Record and any orders documented therein. Any exceptions are noted below. OB Procedure Charges 23219
--- NOTE | 2023-01-09 10:36 | Anesthesiology Progress Note ---
Date of Service January 09, 2023 Anesthesia Post Procedure Vital Signs Vital Signs: Temp Pulse Resp BP Pulse Ox 01/09/23 07:40 20 01/08/23 19:11 36.8 C 18 01/09/23 10:34 107 H 95 01/09/23 10:30 109 H 94 01/09/23 10:29 109 H 120/57 L 94 01/09/23 09:36 112 H 128/60 01/09/23 09:34 103 H 98 01/09/23 08:10 20 01/09/23 08:10 20 01/09/23 08:26 20 01/09/23 08:26 20 01/09/23 08:40 20 01/09/23 08:40 20 01/09/23 09:29 103 H 98 01/09/23 09:24 129 H 99 01/09/23 09:21 101 H 125/64 01/09/23 09:19 105 H 99 01/09/23 09:14 92 H 98 01/09/23 09:09 114 H 98 01/09/23 09:07 102 H 128/71 01/09/23 09:04 97 H 96 01/09/23 08:59 108 H 97 01/09/23 08:54 108 H 97 01/09/23 08:51 107 H 121/61 01/09/23 08:49 97 H 97 01/09/23 08:44 125 H 99 01/09/23 08:39 125 H 96 01/09/23 08:37 126 H 107/57 L 01/09/23 08:34 131 H 96 01/09/23 08:29 120 H 96 01/09/23 07:10 20 01/09/23 07:10 20 01/09/23 07:25 20 01/09/23 07:25 36.8 C 20 01/09/23 07:40 20 01/09/23 07:40 20 01/09/23 07:55 20 01/09/23 07:55 20 01/09/23 08:24 132 H 97 01/09/23 08:22 133 H 108/56 L 01/09/23 08:19 131 H 97 01/09/23 08:14 132 H 98 01/09/23 08:09 130 H 98 01/09/23 08:08 127 H 117/57 L 01/09/23 08:04 121 H 97 01/09/23 07:59 123 H 97 01/09/23 07:54 120 H 97 01/09/23 07:51 121 H 114/69 01/09/23 07:49 98 01/09/23 07:49 129 H 01/09/23 07:49 130 H 114/70 01/09/23 07:47 137 H 112/63 01/09/23 07:45 120 H 116/71 01/09/23 07:44 118 H 98 01/09/23 07:43 127 H 111/55 L 01/09/23 07:41 111 H 129/62 01/09/23 07:39 114 H 126/65 97 01/09/23 07:37 109 H 127/70 01/09/23 07:35 118 H 127/76 01/09/23 07:34 113 H 97 01/09/23 07:33 111 H 127/75 01/09/23 07:31 113 H 129/72 01/09/23 07:29 108 H 97 01/09/23 07:27 118 H 142/65 H 01/09/23 07:26 137 H 140/80 01/09/23 07:24 103 H 97 01/09/23 07:19 113 H 96 01/09/23 07:14 123 H 98 01/09/23 07:12 110 H 131/74 01/09/23 07:09 125 H 97 01/09/23 07:04 112 H 97 01/09/23 06:59 116 H 96 01/09/23 06:57 121 H 130/74 01/09/23 06:54 113 H 96 01/09/23 06:49 114 H 97 01/09/23 06:44 104 H 97 01/09/23 06:42 137 H 132/51 L 01/09/23 06:39 107 H 98 01/09/23 06:34 109 H 98 01/09/23 06:29 102 H 97 01/09/23 06:27 112 H 125/61 01/09/23 06:24 108 H 97 01/09/23 06:19 113 H 98 01/09/23 06:14 111 H 97 01/09/23 06:12 112 H 129/59 L 01/09/23 06:09 127 H 98 01/09/23 06:04 116 H 97 01/09/23 05:59 120 H 97 01/09/23 05:57 117 H 158/70 H 01/09/23 05:54 116 H 97 01/09/23 05:49 115 H 96 01/09/23 05:44 116 H 97 01/09/23 05:42 120 H 153/72 H 01/09/23 05:39 122 H 96 01/09/23 05:34 121 H 96 01/09/23 05:29 117 H 97 01/09/23 05:26 108 H 139/69 01/09/23 05:24 112 H 139/58 L 96 01/09/23 05:22 112 H 140/65 01/09/23 05:20 113 H 133/55 L 01/09/23 05:19 114 H 96 01/09/23 05:18 110 H 140/64 01/09/23 05:16 109 H 139/57 L 01/09/23 05:14 97 01/09/23 05:14 118 H 01/09/23 05:14 112 H 148/66 H 01/09/23 05:12 111 H 153/70 H 01/09/23 05:10 111 H 150/69 H 01/09/23 05:09 111 H 96 01/09/23 05:08 112 H 139/63 01/09/23 05:06 122 H 129/62 01/09/23 05:04 114 H 136/62 98 01/09/23 05:02 105 H 137/63 01/09/23 05:00 37.3 C 111 H 16 136/65 01/09/23 04:59 111 H 97 01/09/23 04:58 107 H 135/64 01/09/23 04:56 107 H 135/63 01/09/23 04:54 108 H 137/64 96 01/09/23 04:52 129 H 130/61 01/09/23 04:50 123 H 111/53 L 01/09/23 04:49 125 H 96 01/09/23 04:48 110 H 135/62 01/09/23 04:46 112 H 137/63 01/09/23 04:44 118 H 130/60 96 01/09/23 04:42 108 H 129/60 01/09/23 04:39 108 H 95 03/23/23 04:40 107 H 128/59 L 01/09/23 04:38 111 H 131/63 01/09/23 04:36 110 H 132/60 01/09/23 04:34 105 H 133/62 95 01/09/23 04:32 114 H 134/62 01/09/23 04:30 118 H 132/61 01/09/23 04:29 106 H 96 01/09/23 04:28 116 H 139/65 01/09/23 04:26 113 H 133/61 01/09/23 04:24 117 H 142/67 H 96 01/09/23 04:22 109 H 137/73 01/09/23 04:19 115 H 95 01/09/23 04:14 109 H 96 01/09/23 04:09 115 H 96 01/09/23 04:07 115 H 136/70 01/09/23 04:04 111 H 97 01/09/23 03:59 112 H 96 01/09/23 03:54 106 H 96 01/09/23 03:53 107 H 130/66 01/09/23 03:49 112 H 97 01/09/23 03:44 107 H 96 01/09/23 03:39 125 H 97 01/09/23 03:38 113 H 140/80 01/09/23 03:34 122 H 96 01/09/23 03:29 115 H 96 01/09/23 03:24 107 H 96 01/09/23 03:23 108 H 131/59 L 01/09/23 03:19 105 H 96 01/09/23 03:14 108 H 96 01/09/23 03:09 125 H 97 01/09/23 03:07 109 H 132/62 01/09/23 03:04 109 H 96 01/09/23 02:59 97 01/09/23 02:59 111 H 01/09/23 03:00 37.5 C 104 H 20 149/70 H 96 01/09/23 02:54 106 H 96 01/09/23 02:52 115 H 169/74 H 01/09/23 02:49 114 H 95 01/09/23 02:44 116 H 96 01/09/23 02:39 115 H 173/82 H 97 01/09/23 02:34 111 H 98 01/09/23 02:29 131 H 98 01/09/23 02:24 105 H 96 01/09/23 02:22 117 H 145/75 H 01/09/23 02:19 112 H 95 01/09/23 02:14 104 H 93 01/09/23 02:11 104 H 93 01/09/23 02:09 104 H 95 01/09/23 02:06 112 H 135/74 92 01/09/23 02:04 111 H 146/75 H 97 01/09/23 02:02 109 H 145/69 H 01/09/23 01:59 97 01/09/23 01:59 109 H 01/09/23 02:00 103 H 145/68 H 01/09/23 01:59 114 H 93 01/09/23 01:58 115 H 142/72 H 01/09/23 01:56 110 H 146/79 H 01/09/23 01:54 119 H 148/84 H 98 01/09/23 01:51 115 H 155/90 H 01/09/23 01:49 119 H 99 01/09/23 01:00 37.1 C 01/09/23 01:44 116 H 99 01/09/23 01:39 132 H 99 01/09/23 01:36 144 H 182/105 H 01/09/23 01:34 149 H 98 01/09/23 01:29 127 H 98 01/09/23 01:24 120 H 98 01/09/23 01:19 123 H 96 01/09/23 01:20 121 H 132/67 01/09/23 01:14 121 H 96 01/09/23 01:09 122 H 96 01/09/23 01:07 114 H 136/69 01/09/23 01:04 113 H 95 01/09/23 00:59 118 H 96 01/09/23 00:54 121 H 97 01/09/23 00:49 116 H 96 01/09/23 00:50 111 H 108/57 L 01/09/23 00:44 115 H 96 01/09/23 00:39 108 H 96 01/09/23 00:36 105 H 114/63 01/09/23 00:34 106 H 98 01/09/23 00:29 100 H 97 01/09/23 00:24 99 H 98 03/23/23 00:19 115 H 98 01/09/23 00:20 107 H 145/85 H 01/09/23 00:14 106 H 98 01/09/23 00:09 99 H 98 01/09/23 00:05 101 H 140/74 01/09/23 00:04 116 H 97 03 23:59 124 H 97 01/08/23 23:54 115 H 96 03 23:50 114 H 136/72 01/08/23 23:49 117 H 97 01/08/23 23:44 120 H 97 01/08/23 23:39 114 H 97 01/08/23 23:35 117 H 132/69 01/08/23 23:34 117 H 97 01/08/23 23:29 112 H 98 01/08/23 23:24 99 H 98 01/08/23 23:20 115 H 144/76 H 01/08/23 23:19 107 H 98 01/08/23 23:14 105 H 98 01/08/23 23:09 100 H 98 01/08/23 23:06 99 H 139/72 01/08/23 23:04 97 H 97 0323 22:59 98 H 97 03 22:54 98 H 97 01/08/23 22:51 99 H 147/72 H 01/08/23 22:49 98 H 97 01/08/23 22:44 130 H 99 0323 22:39 123 H 98 01/08/23 22:34 100 H 97 03 22:35 36.8 C 100 H 112/56 L 23 22:29 116 H 98 0323 22:24 104 H 97 0323 22:20 104 H 109/58 L 23 22:19 103 H 98 0323 22:14 108 H 97 032223 22:09 111 H 96 032223 22:07 108 H 117/63 0323 22:04 106 H 96 0323 21:59 106 H 96 0322/23 21:54 105 H 97 0323 21:51 99 H 109/58 L 23 21:49 98 H 97 0323 21:44 99 H 97 01/08/23 21:39 99 H 97 01/08/23 21:35 104 H 107/57 L 01/08/23 21:34 103 H 99 01/08/23 21:29 98 H 98 01/08/23 21:24 94 H 98 01/08/23 21:20 85 116/62 01/08/23 21:19 88 99 01/08/23 21:14 93 H 100 01/08/23 21:09 104 H 100 01/08/23 21:07 86 125/73 01/08/23 21:04 37.4 C 91 H 98 01/08/23 20:30 16 01/08/23 20:30 16 01/08/23 20:45 16 01/08/23 20:45 16 01/08/23 20:00 18 01/08/23 20:00 18 01/08/23 20:15 18 01/08/23 20:15 18 01/08/23 20:59 88 99 01/08/23 20:54 85 100 01/08/23 20:50 83 135/71 01/08/23 20:49 85 100 01/08/23 20:44 95 H 100 01/08/23 20:39 82 100 01/08/23 20:34 119 H 100 01/08/23 20:32 93 H 113/61 01/08/23 20:29 98 H 100 01/08/23 20:26 100 H 110/58 L 01/08/23 20:24 100 H 100 01/08/23 20:21 98 H 113/60 01/08/23 20:19 99 H 100 01/08/23 20:17 101 H 124/64 01/08/23 20:14 94 H 100 01/08/23 20:11 99 H 108/57 L 01/08/23 20:09 121 H 100 01/08/23 20:07 112 H 120/62 01/08/23 20:04 113 H 100 01/08/23 20:01 106 H 100/57 L 01/08/23 19:59 105 H 99 01/08/23 19:55 110 H 109/50 L 01/08/23 19:54 105 H 97 01/08/23 19:53 112 H 104/53 L 01/08/23 19:52 123 H 108/51 L 01/08/23 19:49 97 01/08/23 19:49 99 H 01/08/23 19:49 100 H 126/57 L 01/08/23 19:47 104 H 126/60 01/08/23 19:45 94 H 16 127/58 L 01/08/23 19:44 105 H 97 01/08/23 19:43 94 H 132/64 01/08/23 19:41 100 H 129/72 01/08/23 19:39 96 H 98 01/08/23 19:34 106 H 99 01/08/23 18:57 36.8 C 113 H 132/76 01/08/23 17:59 96 H 139/81 01/08/23 16:57 37.2 C 82 20 134/71 01/08/23 16:01 79 145/73 H 01/08/23 16:00 20 01/08/23 16:00 37.2 C 20 01/08/23 15:26 37.0 C 87 20 142/87 H 01/08/23 14:33 75 126/71 01/08/23 13:29 88 133/71 01/08/23 12:32 83 124/73 01/08/23 11:30 37.1 C 89 20 135/83 Pain Intensity Abdomen: Pain Intensity: 0 Left Back: Pain Intensity: 1 Transfer of Care Handoff Completed per policy Notes Mental Status: alert / awake / arousable Nausea / Vomiting: adequately controlled Pain: adequately controlled Airway Patency, RR, SpO2: stable & adequate BP & HR: stable & adequate Hydration State: stable & adequate Neuraxial Anesthesia: was administered and sensory block is resolving Anesthetic Complications: no major complications apparent and Pt Satisfied with anesthetic care
--- NOTE | 2023-01-09 10:37 | Anesthesia Procedure Note ---
Date of Service January 09, 2023 Anesthesia Post Epidural Note Vital Signs Vital Signs: Temp Pulse Resp BP Pulse Ox 36.8 C 107 H 20 120/57 L 95 01/09/23 07:25 01/09/23 10:34 01/09/23 08:40 01/09/23 10:29 01/09/23 10:34 Pain Intensity Abdomen: Pain Intensity: 0 Left Back: Pain Intensity: 1 Notes Mental Status: alert / awake / arousable Nausea / Vomiting: adequately controlled Pain: adequately controlled Airway Patency, RR, SpO2: stable & adequate BP & HR: stable & adequate Hydration State: stable & adequate Neuraxial Anesthesia: was administered and sensory block is resolving Anesthetic Complications: no major complications apparent and Pt Satisfied with anesthetic care Epidural: Removed without complications and With tip intact
[2023-01-09] MEDS: ceFAZolin 2000MG 2,000 MG/15 ML SYR IV SCH (10:51)
[2023-01-09] MEDS ORDERED: LACTATED RINGER'S 1,000 ML IV SCH (10:59)
[2023-01-09] MEDS ORDERED: DIPHTHERIA/TETANUS/PERTUSSIS 0.5mL SYR/VIAL (Age 7+yrs) IM ONE (10:59)
[2023-01-09] MEDS ORDERED: diphenhydrAMINE Capsule 25 MG CAP PO PRN (10:59)
[2023-01-09] MEDS ORDERED: HYDROCORTISONE ACETATE 25 MG SUPP PR PRN (10:59)
[2023-01-09] MEDS ORDERED: ONDANSETRON INJ 2 MG/ML 2 ML VIAL IV PRN ×2 (10:59→12:22)
[2023-01-09] MEDS ORDERED: SENNA 8.6 MG TAB PO PRN (10:59)
[2023-01-09] MEDS ORDERED: MAGNESIUM HYDROXIDE SUSP 30 ML UDC PO PRN (10:59)
[2023-01-09] MEDS ORDERED: BENZOCAINE 20% AER SPR 82.5 GM CAN EXT PRN (10:59)
[2023-01-09 11:15] LABS: Base Excess Cord Arterial Bld -7.8 mEq/L (-9-1.8); Base Excess Cord Venous Blood -6.7 mEq/L (-7.7-1.9); CO2 Cord Arterial Blood 61 mmHg (39.1-73.5); Cord Venous Blood HCO3 21 mmol/L (18.4-26.8); Cord Venous Blood PCO2 47 mmHg (30.4-57.2); Cord Venous Blood PO2 12 mmHg (14.1-43.3); Cord Venous Blood pH 7.25 (7.20-7.44); HCO3 Cord Arterial Blood 22 mmol/L (19.7-28.5); O2 Saturation Cord Venous Bld < 60.0 % (<68); Oxygen Sat Cord Arterial Blood < 60.0 % (<60); PO2 Cord Arterial Blood 6 mmHg (4.1-31.7); pH Cord Arterial Blood 7.16 (7.1-7.38)
[2023-01-09] MEDS ORDERED: CARBOPROST TROMETHAMINE 250 MCG/ML AMPUL IM ONE (11:30)
[2023-01-09] MEDS ORDERED: MEPERIDINE HCL 50 MG/ML CARP ONE (12:09)
[2023-01-09] MEDS ORDERED: LACTATED RINGER'S 500 ML IV PRN (12:22)
[2023-01-09] MEDS ORDERED: NALOXONE HCL 0.08 MG in SYRINGE 1.8 ML IV PRN (12:22)
[2023-01-09] MEDS ORDERED: MEPERIDINE HCL 25 MG/ML CARP/VIAL IV PRN (12:22)
[2023-01-09] MEDS ORDERED: MoRPHine SULFATE PF 1 MG/ML 10 ML AMP/VIAL INT SPINAL ONE (12:22)
[2023-01-09] MEDS ORDERED: MoRPHine SULFATE 2 MG/ML CARP IV PRN (12:22)
[2023-01-09] MEDS ORDERED: HYDROmorphone INJ 0.5 MG/0.5 ML SYR IV PRN (12:22)
[2023-01-09] MEDS ORDERED: PROMETHAZINE HCL 6.25 MG in SODIUM CHLORIDE 0.9% 50 ML IV PRN (12:22)
[2023-01-09] MEDS ORDERED: NO NARCOTICS OR SEDATIVES SCH (12:30)
[2023-01-09] MEDS ORDERED: DC INTRASPINAL MORPHINE SCH (12:30)
[2023-01-09] MEDS ORDERED: SODIUM CHLORIDE 0.9% 1000ML 1,000 ML IV SCH (12:30)
[2023-01-09] MEDS: OXYTOCIN 20 UNITS in LACTATED RINGER'S 1,000 ML IV SCH ×2 (12:57→21:30)
[2023-01-09] MEDS ORDERED: MEPERIDINE HCL 50 MG/ML CARP IV ONE (14:18)
[2023-01-09] MEDS: SIMETHICONE 80 MG CHEW PO SCH ×2 (19:48→21:30)
[2023-01-09] MEDS: DOCUSATE SODIUM 100 MG CAP PO SCH (21:29)
[2023-01-09] MEDS: KETOROLAC 30 MG/ML VIAL IV PRN (21:30)
[2023-01-10] MEDS: KETOROLAC 30 MG/ML VIAL IV PRN (04:22)
--- NOTE | 2023-01-10 05:32 | Obstetrical Progress Note ---
Date of Service <Ashwini HidalgoDO - Last Filed: 01/10/23 06:26> January 10, 2023 Assessment & Plan <Ashwini HidalgoDO - Last Filed: 01/10/23 06:26> (1) Status post section: plan for d/c [place], do a trial of OOB and ambulation and then progress diet as tolerated <Laila Lay MD, FACOG - Last Filed: 01/10/23 07:36> (1) Status post section: Subjective <Ashwini HidalgoDO - Last Filed: 01/10/23 06:26> Jacqueline is a 22 y/o female who is POD #1 following delivery at 41 weeks. She reports feeling well overall this morning. Mild abdominal cramping,m pain well managed on analgesics. [place] is still in place. Has not been OOB yet. Tolerating meals overnight. Has some persistent lochia with some improvement this morning. Currently bottle feeding. Review of Systems Denies fever, chills, sweats Denies shortness of breath, difficulty breathing, chest pain, palpitations, chest pressure. Denies breast pain. Denies dysuria. Denies headache or changes in vision. Physical Exam <Ashwini HidalgoDO - Last Filed: 01/10/23 06:26> General: Alert, oriented. No acute distress. Cardiac: Regular rate and rhythm, no murmurs/rubs/gallops. Respiratory: Clear to auscultation bilaterally a/p, no wheezes/rales/rhonchi. No increased work of breathing. Symmetrical chest rise. No respiratory distress. Abdomen: Soft, nontender, nondistended. Bowel sounds present. Uterus: Uterine fundus firm, palpable 2 cm below umbilicus. Surgical dressing is clean and dry. Lower Extremities: No lower extremity edema or swelling. No deep calf pain. Results & Data <Ashwini HidalgoDO - Last Filed: 01/10/23 06:26> Vital Signs (Past 12 Hours) Vital Signs Temp Pulse Resp BP Pulse Ox O2 Del Method 01/10/23 05:00 16 96 01/10/23 04:00 36.8 C 85 18 123/74 98 Room Air 01/10/23 04:00 16 95 01/10/23 03:00 18 96 03/24/23 02:00 18 94 01/10/23 01:00 18 94 01/09/23 23:45 37.0 C 95 H 16 117/68 95 Room Air 01/10/23 00:00 16 96 01/09/23 23:00 16 96 01/09/23 22:00 16 96 01/09/23 21:00 16 98 01/09/23 20:00 16 96 01/09/23 18:00 16 96 01/09/23 19:00 36.8 C 90 16 115/67 96 Room Air 01/09/23 19:00 18 96 <Laila Lay MD, FACOG - Last Filed: 01/10/23 07:36> Co-Signing Physician Notes Resident Physician Supervision Note: I interviewed and examined the patient. Discussed with Dr. Hidalgo and agree with findings and plan as documented in the note. Any exceptions or clarifications are listed here: Doing well. Routine care for ppd 1. Dressing with dried blood, nothing fresh. No blood with palpation of the abdomen. Documented By: Laila Lay MD, FACOG Resident Activity Tracking <Ashwini Hidalgo, DO - Last Filed: 01/10/23 06:26> Resident Involvement: Resident Care Provided Care Provided: OB Delivery (Post )
[2023-01-10 06:40] LABS: Basophils # (auto) 0.04 K/uL (0-0.2); Basophils % (auto) 0.2 %; Eosinophils # (auto) 0.03 K/uL (0-0.50); Eosinophils % (auto) 0.2 %; Hematocrit (blood only) 29.1 % (37.0-47.0); Hemoglobin 9.9 g/dl (12.0-16.0); Immature Granulocytes # (auto) 0.18 K/uL (0.01-0.20); Immature Granulocytes % (auto) 0.9 %; Lymphocytes # (auto) 1.33 K/uL (1.2-3.4); Lymphocytes % (auto) 6.8 %; Mean Corpuscular Hemoglobin 29.2 pg (25.0-34.0); Mean Corpuscular Volume 85.8 fL (80.0-100.0); Monocytes # (auto) 1.65 K/uL (0.11-0.59); Monocytes % (auto) 8.4 %; Neutrophils # (auto) 16.38 K/uL (1.40-6.50); Neutrophils % (auto) 83.5 %; Platelet Count 167 K/uL (130-400); RDW Coefficient of Variation 16.6 % (11.5-14.5); RDW Standard Deviation 51.8 fL (36.4-46.3); Red Blood Count 3.39 M/uL (4.20-5.40); White Blood Count 19.61 K/ul (4.8-10.8)
[2023-01-10] MEDS: DOCUSATE SODIUM 100 MG CAP PO SCH ×2 (08:35→19:58)
[2023-01-10] MEDS: SIMETHICONE 80 MG CHEW PO SCH ×4 (08:35→19:57)
[2023-01-10] MEDS: PRENATAL VITAMIN 1 TAB PO SCH (08:36)
[2023-01-10] MEDS: FERROUS SULFATE 325 MG TAB PO SCH (08:36)
[2023-01-10] MEDS: IBUPROFEN 600 MG TAB PO PRN ×3 (08:39→19:58)
[2023-01-10] MEDS: oxyCODONE/ACETAMINOPHEN 5mg/325mg TAB PO PRN ×3 (08:41→19:57)
[2023-01-10] MEDS ORDERED: bisacodyL 5 MG TABEC PO SCH (20:00)
--- NOTE | 2023-01-11 05:25 | Obstetrical Progress Note ---
Date of Service <Ashwiniheather HidalgoDO - Last Filed: 01/11/23 06:08> January 11, 2023 Assessment & Plan <Ashwini HidalgoDO - Last Filed: 01/11/23 06:08> (1) Status post section: Continue OOB and ambulation and then progress diet as tolerated Plan for 6 week post f/u Discharge instructions reviewed <Katya Epstein MD - Last Filed: 01/11/23 07:52> (1) Status post section: Subjective <Ashwiniheather HidalgoDO - Last Filed: 01/11/23 06:08> Jacqueline is a 22 y/o female who is POD #2 following delivery at 41 weeks. She reports feeling well overall this morning. Mild abdominal cramping, pain well managed on analgesics. Voiding. Ambulating. Tolerating meals overnight. Has some persistent lochia with some improvement this morning. Currently bottle feeding. Review of Systems Denies fever, chills, sweats Denies shortness of breath, difficulty breathing, chest pain, palpitations, chest pressure. Denies breast pain. Denies dysuria. Denies headache or changes in vision. Physical Exam <Ashwini DaveyJustice Hidalgo DO - Last Filed: 01/11/23 06:08> General: Alert, oriented. No acute distress. Cardiac: Regular rate and rhythm, no murmurs/rubs/gallops. Respiratory: Clear to auscultation bilaterally a/p, no wheezes/rales/rhonchi. No increased work of breathing. Symmetrical chest rise. No respiratory distress. Abdomen: Soft, nontender, nondistended. Bowel sounds present. Uterus: Uterine fundus firm, palpable 2 cm below umbilicus. Surgical scar without discharge or erythema. Lower Extremities: No lower extremity edema or swelling. No deep calf pain. Results & Data <Ashwini Jen Hidalgo DO - Last Filed: 01/11/23 06:08> Vital Signs (Past 12 Hours) Vital Signs Temp Pulse Resp BP Pulse Ox O2 Del Method 01/10/23 23:15 36.6 C 92 H 16 110/69 97 Room Air 01/10/23 19:02 36.6 C 90 18 120/69 99 Room Air <Katya Epstein MD - Last Filed: 01/11/23 07:52> Co-Signing Physician Notes Resident Physician Supervision Note: I interviewed and examined the patient. Discussed with Dr. Hidalgo and agree with findings and plan as documented in the note. Any exceptions or clarifications are listed here: POD2 s/p pCS, doing well. VSS, exam benign and wnl. Incision w /steris c/d/i. Desires d/c home today, stable to do so Documented By: Katya Epstein MD Resident Activity Tracking <Ashwini Hidalgo DO - Last Filed: 01/11/23 06:08> Resident Involvement: Resident Care Provided Care Provided: OB Delivery (post )
[2023-01-11 06:39] LABS: Hematocrit (blood only) 26.9 % (37.0-47.0)
[2023-01-11] MEDS: ceFAZolin 2000MG 2,000 MG/15 ML SYR IV SCH (07:18)
[2023-01-11] MEDS: SIMETHICONE 80 MG CHEW PO SCH (08:58)
[2023-01-11] MEDS: FERROUS SULFATE 325 MG TAB PO SCH (08:59)
[2023-01-11] MEDS: DOCUSATE SODIUM 100 MG CAP PO SCH (08:59)
[2023-01-11] MEDS: PRENATAL VITAMIN 1 TAB PO SCH (08:59)
[2023-01-11] MEDS ORDERED: bisacodyL 10 MG SUPP PR PRN (10:20)
[2023-01-11] MEDS: oxyCODONE/ACETAMINOPHEN 5mg/325mg TAB PO PRN (11:09)
[2023-01-11] MEDS: IBUPROFEN 600 MG TAB PO PRN (11:10)
--- NOTE | 2023-01-13 16:27 | Discharge Summary ---
Date of Service January 13, 2023 Admission HPI Per Admitting Provider Jacqueline is a 22 y/o female currently at 40 6/7 WGA with an ROSHAN 01/02/23 as determined by LMP who is here for induction of labor. Boston bulb placed yesterday evening. + contractions; + movement; no fluid loss; some bleeding after insertion of Boston bulb External FHT and external uterine monitors used; Category 1 tracing; moderate FHT variability. Had regular appointments with OB. OB Labs: Blood Type A Positive 05/28/22 Antibody Screen NEGATIVE 05/28/22 Hemoglobin 10.2 g/dl (12.0-16.0) L 10/15/22 Hematocrit 30.4 % (34.1-44.9) L 10/15/22 Mean Corpuscular Volume 87.1 fL (80.0-100.0) 05/28/22 Platelet Count 227 K/uL (130-400) 05/28/22 Rubella IgG Antibody Immune (Immune) 05/28/22 Rapid Plasma Reagin Nonreactive (Nonreactive) 05/28/22 Hepatitis B Surface Antigen. NON-REACTIVE (NON-REACTIVE) 05/28/22 Hepatitis C Antibody (EIA) NON-REACTIVE (NON-REACTIVE) 05/28/22 HIV (1&2) Ag and Ab Confirmation NON-REACTIVE (NON-REACTIVE) 05/28/22 Glucose 1 Hour 50 gm Load 118 mg/dl (70-130) 10/15/22 OB Optional Labs: Chlamydia trachomatis RNA NOT DETECTED (NOT DETECTED) 05/28/22 Neisseria gonorrhoeae RNA NOT DETECTED (NOT DETECTED) 05/28/22 GBS Negative Discharge Data Consultations 01/08/23 07:53 Consult Anesthesiology Stat Procedures Performed Operation Date: 01/09/23 09:30 Actual Procedures p Section in LD with the of a live female child at 0954. - [facility]aila Lay MD, [facility] (1) Status post section: Plan Patient had induction for postdates. After a long slow labor, patient had thick meconium and NRFHT that necessitated a . She underwent an uncomplicated primary low transverse with [id number]. Her course was uncomplicated--tolerated a regular diet, ambulated, voided after removal of her boston, pain controlled on po pain meds. discharge h/h 9.0/26.9. Discharged home on postop day 2. Coding Level of Care Code None Diagnoses Status post section Z98.891
== END 2023-01-11 13:45 | disposition home or self-care (01) | DRG 788 ==
LOC: 4S1 07:31 → 4E2 01-09 14:25

== ENCOUNTER 2024-09-20 05:23 | Inpatient (IN) ==
--- NOTE | 2024-09-08 08:59 | Anesthesiology Consultation ---
Date of Service September 08, 2024 Assessment & Plan (1) Encounter for pre-operative examination: Infectious disease screening: Per assessment on 09/08/24- No known recent infectious disease contacts or current infectious disease symptoms. 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 History Surgery Operation Date: 09/20/24 08:50 Proposed Procedures p Section (Delivery of Baby Through Abdominal Incision) - Emily Mariee MD, FACOG Height/Weight Height: 5 ft 3 in Weight: 91.172 kg Allergies Allergy/AdvReac Type Severity Reaction Status Date / Time No Known Allergies Allergy Verified 09/08/24 08:00 Medications Home Medications Medication Instructions Recorded Confirmed Last Taken prenat.vits,rina,[id number] 1 tab PO QAM 05/24/22 09/08/24 01/08/23 06:00 ferrous sulfate 1 tab PO QAM 02/06/24 09/08/24 Unknown Past Medical History Medical History Anemia affecting Asthma Post term over 40 weeks Varicella vaccination Past Family History Family History Denies family history of Ovarian cancer Breast cancer Colorectal cancer Past Surgical History Surgical History S/P cholecystectomy S/P tonsillectomy S/P wisdom tooth extraction Status post section 12/2022 Social History Smoking Status: Never smoker Do You Dip or Chew Tobacco: No Hx Alcohol Use: Yes (not while ) alcohol intake frequency: holidays/special occasions only Hx Substance Use: No substance use type: does not use
--- NOTE | 2024-09-19 14:16 | History & Physical Report ---
Date of Service September 19, 2024 Assessment & Plan (1) 39 weeks gestation of : (2) History of delivery, currently : Plan Patient will be admitted for planned repeat c/s. Consent reviewed and signed. She will have routine labs, iv, abx. History of Present Illness Chief Complaint: planned c/s Primary Care Provider: Lloyd Wei 24yo at 39+wks on day of her admission for planned repeat c/s. Patient had wanted if labored by this date but does want to proceed with c/s if reaches the admission date. Apparently last cx check was with unfavorable cx. No rom, vb. +FM PNC c/b 1. prior c/s 2. gbs pos PNL rhpos, ri, gbs pos OBH: prior c/s x 1 GYNH: nl pap, no stds Allergies Allergy/AdvReac Type Severity Reaction Status Date / Time No Known Allergies Allergy Verified 09/15/24 15:39 Home Medications Medication Instructions Recorded Confirmed Type prenat.vits,rina,[id number]-[id number] 1 tab PO QAM 05/24/22 09/15/24 History ferrous sulfate 1 tab PO QAM 02/06/24 09/15/24 History Patient History Medical History Anemia affecting Asthma Post term over 40 weeks Varicella vaccination Surgical History S/P cholecystectomy S/P tonsillectomy S/P wisdom tooth extraction Status post section 12/2022 Family History Denies family history of Ovarian cancer Breast cancer Colorectal cancer Social History (Updated 02/06/24 @ 10:55 by Lety Javed RN) Smoking Status: Never smoker Second Hand Exposure: Yes (hx as child); Do You Dip or Chew Tobacco: No; Hx Alcohol Use: Yes (not while ) Hx Substance Use: No Preferred Language: Nepalese Communication Ability: Effective 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 Beliefs That Will Affect Care: None marital status: Single marital status details: Stone (22) [phone] Current Living Situation: Family Current Living Situation Comment: lives with fob and child, 2 dogs current occupational status: employed 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
[2024-09-20 06:23] LABS: Hematocrit (blood only) 38.1 % (37.0-47.0); Hemoglobin 12.9 g/dl (12.0-16.0); Mean Corpuscular Hemoglobin 29.9 pg (25.0-34.0); Mean Corpuscular Hgb Conc 33.9 g/dL (32.0-36.0); Mean Corpuscular Volume 88.2 fL (80.0-100.0); Mean Platelet Volume 10.8 fL (9.4-12.4); Platelet Count 191 K/uL (130-400); RDW Coefficient of Variation 13.6 % (11.5-14.5); RDW Standard Deviation 43.8 fL (36.4-46.3); Red Blood Count 4.32 M/uL (4.20-5.40); White Blood Count 12.37 K/ul (4.8-10.8)
[2024-09-20] MEDS ORDERED: SODIUM CHLORIDE 0.9% 50 ML IV PRN (06:28)
[2024-09-20] MEDS ORDERED: SODIUM CHLORIDE 0.9% 100 ML IV PRN (06:28)
[2024-09-20] MEDS: ACETAMINOPHEN 500 MG TAB PO SCH (06:32)
[2024-09-20] MEDS ORDERED: LACTATED RINGER'S 1,000 ML IV SCH ×2 (06:45→08:45)
[2024-09-20] MEDS: LACTATED RINGER'S 1,000 ML IV SCH (07:00)
[2024-09-20] MEDS ORDERED: oxyCODONE HCL IR 5 MG TAB (IMMEDIATE RELEASE) PO PRN (07:20)
[2024-09-20] MEDS ORDERED: MEPERIDINE HCL 25 MG/ML CARP/VIAL IV PRN (07:20)
[2024-09-20] MEDS ORDERED: ePHEDrine sulfate 50 MG/ML AMP IV PRN (07:20)
[2024-09-20] MEDS ORDERED: PROMETHAZINE 6.25 MG/50.25 ML BAG IV PRN (07:20)
[2024-09-20] MEDS ORDERED: NALOXONE HCL 0.4 MG/1 ML VIAL/CARP IV PRN (07:20)
[2024-09-20] MEDS ORDERED: NALOXONE HCL 1 MG in SODIUM CHLORIDE 0.9% 1,000 ML IV PRN (07:20)
[2024-09-20] MEDS ORDERED: diphenhydrAMINE 50 MG/ML VIAL IV PRN (07:20)
[2024-09-20] MEDS ORDERED: NALBUPHINE HCL INJ 10 MG/ML AMP IV PRN (07:20)
[2024-09-20] MEDS ORDERED: MoRPHine SULFATE 2 MG/ML CARP IV PRN (07:20)
[2024-09-20] MEDS ORDERED: NALOXONE HCL 0.08 MG in SYRINGE 1.8 ML IV PRN (07:20)
--- NOTE | 2024-09-20 07:21 | History & Physical Bridge Note ---
Date of Service September 20, 2024 History & Physical Bridge Note I have examined the patient, reviewed the History & Physical and in the interval since the performance of the History & Physical I have noted the following changes of clinical significance: no changes noted
[2024-09-20] MEDS ORDERED: DC INTRASPINAL MORPHINE SCH (07:30)
[2024-09-20] MEDS ORDERED: NO NARCOTICS OR SEDATIVES SCH (07:30)
[2024-09-20] MEDS ORDERED: MoRPHine SULFATE PF 1 MG/ML 10 ML AMP/VIAL ONE (07:33)
[2024-09-20] MEDS: ceFAZolin 2000MG 2,000 MG/15 ML SYR IV SCH (07:34)
[2024-09-20] MEDS ORDERED: ONDANSETRON INJ 2 MG/ML 2 ML VIAL ONE (07:36)
[2024-09-20] MEDS ORDERED: PHENYLEPHRINE HCL 10 MG/ML VIAL ONE (07:36)
[2024-09-20] MEDS ORDERED: OXYTOCIN 10 UNITS/ML VIAL ONE ×3 (07:50→07:52)
[2024-09-20] MEDS ORDERED: KETOROLAC 30 MG/ML VIAL ONE (07:51)
[2024-09-20] MEDS ORDERED: SENNA 8.6 MG TAB PO PRN (08:38)
[2024-09-20] MEDS ORDERED: CALCIUM CARBONATE 500 MG CHEWABLE TAB PO PRN (08:38)
[2024-09-20] MEDS ORDERED: HYDROCORTISONE ACETATE 25 MG SUPP PR PRN (08:38)
[2024-09-20] MEDS ORDERED: BENZOCAINE 20% SPRY 85 APPLN/85 GM CAN EXT PRN (08:38)
[2024-09-20] MEDS ORDERED: MAGNESIUM HYDROXIDE SUSP 30 ML UDC PO PRN (08:38)
--- NOTE | 2024-09-20 08:47 | Operative Report ---
Post Operative Report Pre & Post Diagnosis Operation Date: 09/20/24 07:30 Pre-Op Diagnosis: 1. 39 weeks gestation 2. Previous section, desires repeat c/s Post-Op Diagnosis: Same I identified the patient and participated in the time-out.: Yes Procedure Operation Date: 09/20/24 07:30 Actual Procedures p Repeat Low Transverse Section with the of a live male child at 0802. - Emily Mariee MD, FACOG Surgeon Emily Mariee MD, FACOG Medical Equipment Sales PGY 1 Quantitative Blood Loss (QBL) 556 Findings Consistent with Post-Op Diagnosis (viable , apgars pending. normal uterus, tubes and ovaries bilaterally) Fluids 1000cc Specimens cord blood Drains boston Anesthesia Type Spinal Complications none Disposition Accompanied Patient To Recovery: No Disposition: L&D Indications 24yo at 39+wks for planned repeat c/s as patient desired. Description of Procedure The patient was taken to the operating room and identified. After adequate anesthesia was obtained, she was placed in the supine position with a leftward tilt on the operating table and prepped and draped in the usual sterile fashion. A boston catheter had already been placed. The knife was used to create a Pfannensteil skin incision that was carried down to the underlying layer of fascia. The fascia was nicked in the midline and this opening was extended laterally using Rockwell scissors. Sebastian clamps were placed on the superior and inferior aspect of the fascial incision tenting it upward and the underlying rectus muscles were dissected off the overlying fascia both sharply and bluntly using Rockwell scissors. The rectus muscles were bluntly in the midline. The peritoneal cavity was bluntly entered into. This opening was stretched. The bladder blade was placed. The vesicouterine peritoneum was elevated and opened up into and the bladder flap was created digitally and bladder blade was replaced. The knife was used to create a hysterotomy and this opening was stretched. The operators hand was placed through the hysterotomy and the bladder blade was removed. The head was elevated and flexed and with fundal pressure the head was delivered. The shoulders and body were rapidly delivered. The cord was clamped and cut and the infant's mouth and nares were bulb suction. The infant was handed off to the awaiting pediatricians. Cord blood was obtained. The placenta was manually expressed. The uterus was exteriorized and cleared of all clots and debris. Dilute IV Pitocin was begun. The uterine tone was improving. The hysterotomy was closed in a running interlocking fashion using 0 Vicryl followed by a second imbricating layer of 0 Vicryl. Bleeding site to the left of hysterotomy stitched with interrupted figure of eight sutures of 2-0 vicryl for excellent hemostasis. The hysterotomy was hemostatic. The pelvis was suctioned. The uterus was returned to the abdomen. The gutters were cleared of all clots and debris. The hysterotomy was reinspected and noted to be hemostatic. Due to small oozing at bladder flap area, perclot 4cc was applied. The fascia was then closed in running fashion using 0 Vicryl. The subcutaneous fat was copiously irrigated and reapproximated using 2-0 chromic. The skin was closed in a subcuticular fashion using 4-0 monocryl. At this point the procedure was terminated. The patient was transferred to the recovery room in stable condition. All sponge, lap and needle counts are correct x2. I attest to the content of the Intraoperative Record and any orders documented therein. Any exceptions are noted below. OB Procedure Charges 73026
--- NOTE | 2024-09-20 08:58 | Anesthesiology Progress Note ---
Date of Service September 20, 2024 Anesthesia Post Procedure Vital Signs Vital Signs: Temp Pulse Resp BP Pulse Ox 09/20/24 08:56 82 100 09/20/24 08:54 61 93 09/20/24 08:52 77 123/56 L 09/20/24 08:51 68 100 09/20/24 07:31 22 09/20/24 07:31 22 09/20/24 07:11 20 09/20/24 07:11 36.6 C 20 09/20/24 07:03 81 121/83 09/20/24 05:51 36.5 C 18 09/20/24 05:51 36.8 C 85 18 120/57 L Transfer of Care Handoff Completed per policy Notes Mental Status: alert / awake / arousable Patient Amnestic to Procedure: Yes Nausea / Vomiting: adequately controlled Pain: adequately controlled Airway Patency, RR, SpO2: stable & adequate BP & HR: stable & adequate Hydration State: stable & adequate Neuraxial Anesthesia: was administered and sensory block is resolving Anesthetic Complications: no major complications apparent and Pt Satisfied with anesthetic care
[2024-09-20] MEDS: CITRIC ACID/SODIUM CITRATE 15 ML UDC PO SCH (09:20)
[2024-09-20] MEDS: DIPHTHER/TETAN/PERTUS Vaccine (Tdap, Adol/Adult) 0.5mL IM ONE (09:21)
[2024-09-20] MEDS: KETOROLAC 30 MG/ML VIAL IV SCH (09:21)
[2024-09-20] MEDS: HYDROmorphone INJ 0.5 MG/0.5 ML SYR IV PRN (10:11)
[2024-09-20] MEDS ORDERED: NON-FORMULARY MEDICATION (Prenat.Vits,Cal,Min-Iron-Folic tablet) PO SCH (11:10)
[2024-09-20] MEDS ORDERED: NON-FORMULARY MEDICATION (Ferrous Sulfate 1 TAB) PO SCH (11:10)
[2024-09-20] MEDS: OXYTOCIN 20 UNITS in LACTATED RINGER'S 1,000 ML IV SCH (11:44)
[2024-09-20] MEDS: SIMETHICONE 80 MG CHEW PO SCH (13:08)
[2024-09-20] MEDS: ONDANSETRON INJ 2 MG/ML 2 ML VIAL IV PRN (13:17)
[2024-09-20] MEDS: ACETAMINOPHEN 325 MG TAB PO SCH (14:58)
[2024-09-20] MEDS: DOCUSATE SODIUM 100 MG CAP PO SCH (20:58)
[2024-09-21] MEDS ORDERED: diphenhydrAMINE 50 MG/ML VIAL IV PRN (01:21)
[2024-09-21] MEDS ORDERED: diphenhydrAMINE Capsule 25 MG CAP PO PRN (01:21)
[2024-09-21] MEDS ORDERED: ONDANSETRON INJ 2 MG/ML 2 ML VIAL IV PRN (01:21)
[2024-09-21] MEDS ORDERED: PROMETHAZINE 12.5 MG/50.5 ML BAG IV PRN (01:21)
[2024-09-21] MEDS ORDERED: HYDROmorphone INJ 0.5 MG/0.5 ML SYR IV PRN (01:21)
--- NOTE | 2024-09-21 06:00 | Obstetrical Progress Note ---
Date of Service September 21, 2024 Assessment & Plan (1) Encounter for assessment: Plan: Bandage removed Encourage ambulation Encourage breast feeding Pain meds as needed Anticipate DC to home on 09/22/24 Admission and Anticipated Discharge Date Admission Date: September 20, 2024 Supervising Physician Co-Signing Physician Notes Patient seen with resident and agree with the above findings and plan. Patient doing well. Routine care Subjective Pt is 24 yo post-op day 1 s/p CS at 39+w. complicated by GBS+ Ambulation:In and out of room Voiding:voiding normally Passing gas: no BM: no Diet tolerance:regular diet Lochia:bloody, no clots Feeding type: breast Current pain level: 3-4 /10 improved with Toradol Resting comfortably this morning in NAD. Denies COOK, CP, SOB, N/V/D, LE pain/swelling. Review of Systems Review of Systems: As per HPI Physical Exam Constitutional: WD/WN, vitals as above Respiratory: normal respiratory effort, lungs clear to auscultation Cardiovascular: Rate/Rhythm: regular rate and regular rhythm Heart Sounds: no murmur Extremities: + edema (trace a bilateral ankles) Gastrointestinal (Abdomen): normal bowel sounds, soft, nontender, no hepatosplenomegaly Uterine fundus firm and at level of umbilicus Skin: Bandage removed, c section incision is clean and dry Neurologic: PERRL, EOMI, accommodation nl, no face palsy, no dysarthria Moving all 4 extremities on command Psychiatric: A+Ox3, euthymic affect Results & Data Vital Signs (Past 12 Hours) Vital Signs Temp Pulse Resp BP Pulse Ox O2 Del Method 09/21/24 03:30 37.1 C 81 18 123/79 96 Room Air 09/21/24 02:00 18 96 09/21/24 01:00 18 96 09/21/24 00:00 18 95 09/20/24 23:30 37.0 C 87 18 117/67 96 Room Air 09/20/24 23:00 18 95 09/20/24 22:00 18 95 09/20/24 21:00 18 96 09/20/24 20:00 18 97 09/20/24 19:43 37.2 C 69 18 120/69 97 Room Air 09/20/24 19:00 18 97 09/20/24 18:15 20 96 Resident Activity Tracking Resident Involvement: Resident Care Provided Care Provided: Adult Hospital Medicine
[2024-09-21 06:21] LABS: Basophils # (auto) 0.02 K/uL (0.00-0.20); Basophils % (auto) 0.2 %; Eosinophils % (auto) 0.8 %; Hematocrit (blood only) 29.7 % (37.0-47.0); Hemoglobin 10.1 g/dl (12.0-16.0); Immature Granulocytes # (auto) 0.09 K/uL (0.01-0.20); Immature Granulocytes % (auto) 0.7 %; Lymphocytes # (auto) 0.94 K/uL (1.20-3.40); Lymphocytes % (auto) 7.3 %; Mean Corpuscular Hemoglobin 30.5 pg (25.0-34.0); Mean Corpuscular Volume 89.7 fL (80.0-100.0); Monocytes # (auto) 0.59 K/uL (0.11-0.59); Monocytes % (auto) 4.6 %; Neutrophils # (auto) 11.14 K/uL (1.40-6.50); Neutrophils % (auto) 86.4 %; Platelet Count 159 K/uL (130-400); RDW Coefficient of Variation 13.9 % (11.5-14.5); RDW Standard Deviation 45.7 fL (36.4-46.3); Red Blood Count 3.31 M/uL (4.20-5.40); White Blood Count 12.88 K/ul (4.8-10.8)
[2024-09-21] MEDS ORDERED: KETOROLAC 30 MG/ML VIAL IV PRN (08:39)
[2024-09-21] MEDS: FERROUS SULFATE 325 MG TAB PO SCH (08:41)
[2024-09-21] MEDS: PRENATAL VITAMIN 1 TAB PO SCH (08:41)
[2024-09-21] MEDS: IBUPROFEN 600 MG TAB PO SCH (09:22)
[2024-09-21] MEDS: oxyCODONE HCL IR 5 MG TAB (IMMEDIATE RELEASE) PO PRN (16:13)
[2024-09-21] MEDS: bisacodyL 5 MG TABEC PO SCH (21:30)
[2024-09-21] MEDS: MoRPHine SULFATE PF 1 MG/ML 10 ML AMP/VIAL INT SPINAL ONE (21:38)
[2024-09-21 23:08] VITALS: TEMP 98.1; O2SAT 100
--- NOTE | 2024-09-22 05:18 | Obstetrical Progress Note ---
Date of Service September 22, 2024 Assessment & Plan (1) Encounter for assessment: Plan: Bandage removed Encourage ambulation Pain meds as needed Anticipate DC to home today Admission and Anticipated Discharge Date Admission Date: September 20, 2024 Supervising Physician Co-Signing Physician Notes Resident Physician Supervision Note: I interviewed and examined the patient. Discussed with Dr. Ferguson and agree with findings and plan as documented in the note. Any exceptions or clarifications are listed here: POD2 s/p CS, doing well. Desires dc today Documented By: Katya Epstein MD Subjective Pt is 24 yo post-op day 2 s/p CS at 39+w. complicated by GBS+ Ambulation:In and out of room Voiding:voiding normally Passing gas: yes BM: no Diet tolerance:regular diet Lochia:bloody, no clots Feeding type: formula Current pain level: 2 /10 improved with Toradol Resting comfortably this morning in NAD. Denies COOK, CP, SOB, N/V/D, LE pain/swelling. Review of Systems Review of Systems: As per HPI Physical Exam Constitutional: WD/WN, vitals as above Respiratory: normal respiratory effort, lungs clear to auscultation Cardiovascular: RRR, no murmur, no edema Rate/Rhythm: regular rate and regular rhythm Heart Sounds: no murmur Extremities: + edema (trace a bilateral ankles) Gastrointestinal (Abdomen): normal bowel sounds, soft, nontender, no hepatosplenomegaly Neurologic: PERRL, EOMI, accommodation nl, no face palsy, no dysarthria Psychiatric: A+Ox3, euthymic affect Results & Data Vital Signs (Past 12 Hours) Vital Signs Temp Pulse Resp BP Pulse Ox O2 Del Method 09/21/24 23:06 36.7 C 101 H 16 134/80 100 Room Air 09/21/24 20:30 36.6 C 85 16 121/71 99 Room Air Resident Activity Tracking Resident Involvement: Resident Care Provided Care Provided: Adult Hospital Medicine
[2024-09-22 06:24] LABS: Hematocrit (blood only) 29.8 % (37.0-47.0); Hemoglobin 9.9 g/dl (12.0-16.0)
[2024-09-22] MEDS: IBUPROFEN 600 MG TAB PO PRN (07:59)
[2024-09-22] MEDS ORDERED: bisacodyL 10 MG SUPP PR PRN (08:39)
[2024-09-22 08:52] VITALS: BP 138/79; PULSE 77; RESP 18
[2024-09-22] MEDS ORDERED: ACETAMINOPHEN 325 MG TAB PO PRN (14:39)
== END 2024-09-22 12:16 | disposition home or self-care (01) | DRG 787 ==
LOC: 4S1 05:23 → EDSTATUS 08:50 → 4E2 12:00